=== PATIENT | female | born 1975 | race Hispanic/Latino ===

== ENCOUNTER 2019-07-09 21:30 | Emergency (ER) | payer SELFPAY ==
[~2019-07-09] VITALS: Ht 162.6 cm; Wt 112.5 kg
--- OUTSIDE RECORDS SUMMARY | 2019-07-09 21:33 | XMS REPORT | Clinical Summary ---
Author Author [facility] Organization [place] [facility] Address Unknown Phone Unavailable Care Team Providers Care Fine Grader Name Role Phone Asked, No Pcp PCP Unavailable Allergies Comments Active Allergy Reactions Severity Noted Date Latex Swelling 02/28/2019 Medications No known medications Active Problems Not on file Encounters Care Team Description Date Type Specialty Reinaldo Morataya MD Nonintractable headache, unspecified chr onicity pattern, unspecified headache type (Primary Dx); Generalized abdominal pain 02/28/2019 Emergency Emergency Medicine after 07/08/2018 Social History Date Tobacco Use Types Packs/Day Years Used Never Smoker Smokeless Tobacco: Never Used Drinks/Week oz/Week Comments Alcohol Use Never Alcohol Habits Answer Date Recorded How often do you have a drink containing alcohol? Never 02/28/2019 How many drinks containing alcohol do you have on No t asked a typical day when you are drinking? How often do you have six or more drinks on one Not asked occasion? Sex Assigned at Date Recorded Not on file Industry Job Start Date Occupation Not on file Not on file Not on file Travel End Travel History Travel Start No recent travel history available. Last Filed Vital Signs Reading Time Taken Comments Vital Sign 94/53 02/28/2019 7:50 AM UNIONMELT OPERATOR Blood Pressure 70 02/28/2019 7:50 AM UNIONMELT OPERATOR Pulse 36.9 C (98.5 F) 02/28/2019 5:10 AM UNIONMELT OPERATOR Temperature 17 02/28/2019 7:50 AM UNIONMELT OPERATOR Respiratory Rate 99% 02/28/2019 7:50 AM UNIONMELT OPERATOR Oxygen Saturation - - Inhaled Oxygen Concentration 113 kg (250 lb) 02/28/2019 5:10 AM UNIONMELT OPERATOR Weight 162.6 cm (5' 4") 02/28/2019 5:10 AM UNIONMELT OPERATOR Height 42.91 02/28/2019 5:10 AM UNIONMELT OPERATOR Body Mass Index Plan of Treatment Health Maintenance Due Date Last Done Comments CERVICAL CANCER SCREENING 1998 INFLUENZA VACCINE 09/12/2019 Procedures Comments Procedure Name Priority Date/Time Associated Diag nosis XR CHEST 2 VW STAT 02/28/2019 7:[address] [address] HEAD WO CONTRAST STAT 02/28/2019 6:57 AM UNIONMELT OPERATOR TROPONIN Routine 02/28/2019 6:47 AM UNIONMELT OPERATOR ESTIMATED GFR STAT 02/28/2019 5:40 AM UNIONMELT OPERATOR HCG QUALITATIVE, URINE STAT 02/28/2019 SCREEN 5:40 AM UNIONMELT OPERATOR URINALYSIS SCREEN AND STAT 02/28/2019 MICROSCOPY, WITH REFLEX 5:40 AM UNIONMELT OPERATOR TO CULTURE COMPREHENSIVE METABOLIC STAT 02/28/2019 PANEL 5:40 AM UNIONMELT OPERATOR HC COMPLETE BLD COUNT STAT 02/28/2019 W/AUTO DIFF 5:40 AM UNIONMELT OPERATOR URINE CULTURE STAT 02/28/2019 5:40 AM UNIONMELT OPERATOR after 07/08/2018 Results * XR Chest 2 Vw (02/28/2019 7:22 AM UNIONMELT OPERATOR) Specimen Narrative Performed At EXAMINATION: XR CHEST 2 VW [facility] CLINICAL HISTORY: 43 years Female chest pain [facility] COMPARISON: None IMPRESSION: 1.Heart size and central vasculature ar e normal. 2.The lungs are clear. 3.Bones are intact. [facility]-[id number] Procedure Note Hm Interface, Radiology Results Incoming - 02/28/2019 7:26 AM UNIONMELT OPERATOR EXAMINATION: XR CHEST 2 VW CLINICAL HISTORY: 43 years Female chest pain [facility] COMPARISON: None IMPRESSION: 1.Heart size and central vasculature are normal. 2.The lungs are clear. 3.Bones are intact. [facility]-[id number] Performing Organization Address City/State/Zipcode Ph one Number [facility] [address] [place] [address] * CT Head Wo Contrast (02/28/2019 6:57 AM UNIONMELT OPERATOR) Specimen Narrative Performed At EXAMINATION: CT HEAD WO CONTRAST [facility] CLINICAL HISTORY: paresthesias numb ness intermittently x 3 wks COMPARISON: None. TECHNIQUE: Noncontrast head CT performe d using radiation dose reduction techniques. Technical factors are asher luated and adjusted to ensure appropriate moderation of exposure. Automated dos e management technology is applied to adjust radiation exposure while achieving a diagnostic quality im age. FINDINGS: No evidence of acute intracranial hemor rhage, mass, mass effect, midline shift, or acute infarct. Ventricles and sulci are normal in appe arance for age. Basal cisterns are clear. Calvarium is intact. Orbits are normal in appearance. No sig nificant sinus inflammatory changes. Trace left mastoid fluid. IMPRESSION: 1. No CT evidence of acute intracranial abnormality. [facility]-[id number] Procedure Note [facility], Radiology Results Incoming - 02/28/2019 7:02 AM UNIONMELT OPERATOR EXAMINATION: CT HEAD WO CONTRAST CLINICAL HISTORY: paresthesias numbness intermittently x 3 wks COMPARISON: None. TECHNIQUE: Noncontrast head CT performed using radiation dose reduction techniques. Technical factors are evaluated and adjusted to ensure appropriate moderation of exposure. Automated dose management technology is applied to adjust radiation exposure while achieving a diagnostic quality image. FINDINGS: No evidence of acute intracranial hemorrhage, mass, mass effect, midline shift, or acute infarct. Ventricles and sulci are normal in appearance for age. Basal cisterns are clear. Calvarium is intact. Orbits are normal in appearance. No significant sinus inflammatory changes. Trace left mastoid fluid. IMPRESSION: 1. No CT evidence of acute intracranial abnormality. [facility]-[id number] Performing Organization Address City/State/Zipcode Ph one Number [facility] [address] [place] [address] * Troponin (02/28/2019 6:47 AM UNIONMELT OPERATOR) Troponin <0.006 0.000 - 0.040 ng/mL [place] Comment: [facility] In patients suspected of [facility] having a myocardial infarction, along with all other appropriate clinical measures and actions including ECG and other diagnostics as appropriate, measure Ultra TnI at 0 hrs and at 3 hrs. Myocardial infarction VERY LIKELY The 0 hr TnI level is > 0.10 ng/mL Myocardial infarction LIKELY The 0 hr TnI level is > 0.04 ng/mL and 3 hr level is increased or decreased by at least 0.020 ng/mL Myocardial infarction VERY UNLIKELY Both the 0 hr and 3 hr TnI levels <= 0.04 ng/mL(within normal limits) OR 0 hr is > 0.04 ng/mL and 3 hr is increased OR decreased by less than 0.020 ng/mL Specimen Plasma specimen Performing Organization Address City/State/Zipcode [place] [address] [place], [place] [address] PATHOLOGY AND GENOMIC MEDICINE [facility] [address] [place] [address] [facility] * Urinalysis screen and microscopy, with reflex to culture (02/28/2019 5:40 AM UNIONMELT OPERATOR) Specimen site Catheterized [facility] Color, UA Yellow [facility] Appearance, UA Slightly-Cloudy [facility] Specific 1.021 1.001 - 1.035 [place] gravity, [facility] pH, UA 6.0 5.0 - 8.5 [facility] Protein, UA Negative Negative [facility] Glucose, UA Negative Negative [facility] Ketones, UA Trace (A) Negative [facility] Bilirubin, UA Negative Negative [facility] Blood, UA Negative Negative [facility] Nitrite, UA Negative Negative [facility] Urobilinogen, Negative <2.0 [facility] Leukocyte Negative Negative [place] esterase, [facility] Epithelial None seen Few /HPF [place] cells, UA [facility] WBC, UA None seen 0 - 4 /HPF [facility] RBC, UA None seen 0 - 5 /HPF [facility] Bacteria, UA None seen None seen [facility] Yeast, UA None seen [facility] Yeast with None seen [place] pseudohyphae, [facility] Specimen Urine Performing Organization Address City/[facility] Ph one Number [facility] DEPARTMENT [address] [place] [address] PATHOLOGY AND GENOMIC MEDICINE [address] * Estimated GFR (02/28/2019 5:40 AM UNIONMELT OPERATOR) Pathologist [facility] Estimated GFR >=90 mL/min/1.73 m2 [place] Comment: [employer] Interpretation G1 >=90 Normal or high G2 60-89 Mildly decreased G3a 45-59 Mildly to moderately decreased G3b 30-44 Moderately to severely decreased G4 15-29 Severely decreased G5 <15 Kidney failure The eGFR was calculated using the Chronic Kidney Disease Epidemiology Collaboration (CKD-EPI) equation. Interpretation is based on recommendations of the National Kidney Foundation-Kidney Disease Outcomes Quality Initiative (NKF-KDOQI) published in 2014. Specimen Plasma specimen Performing Organization Address [facility] Ph one Number [facility] DEPARTMENT OF [address] [place] [address] [place] [address] PATHOLOGY AND GENOMIC MEDICINE [address] * hCG qualitative, urine screen (02/28/2019 5:40 AM UNIONMELT OPERATOR) Pathologist [facility] hCG Negative Negative [facility] qualitative, Comment: MEEK VIRK urine The manufacturers stated [facility] L sensitivity of HcG test for serum is >/= 10 mIU/ml and urine is >/= 20mIU/ml. Specimen Urine Performing Organization Address [facility] Ph one Number [facility] DEPARTMENT [address] [place] [address] 58 PATHOLOGY AND GENOMIC MEDICINE [address] * CBC with platelet and differential (02/28/2019 5:40 AM UNIONMELT OPERATOR) Pathologist [facility] WBC 4.41 (L) 4.50 - 11.00 k/uL [facility] RBC 4.25 4.20 - 5.50 m/uL [facility] HGB 12.8 12.0 - 16.0 g/dL [facility] HCT 38.0 37.0 - 47.0 % [facility] MCV 89.4 82.0 - 100.0 fL [facility] MCH 30.1 27.0 - 34.0 pg [facility] MCHC 33.7 31.0 - 37.0 g/dL [facility] RDW - SD 41.7 37.0 - 55.0 fL [facility] MPV 10.9 8.8 - 13.2 fL [facility] Platelet count 155 150 - 400 k/uL [facility] Nucleated RBC 0.00 /100 WBC [facility] Neutrophils 55.3 39.0 - 69.0 % [facility] Lymphocytes 33.8 25.0 - 45.0 % [facility] Monocytes 10.0 0.0 - 10.0 % [facility] Eosinophils 0.7 0.0 - 5.0 % [facility] Basophils 0.2 0.0 - 1.0 % [facility] Specimen Blood Performing Organization Address City/[facility] Ph one Number [facility] DEPARTMENT OF [address] [place] [address] [place] [address] PATHOLOGY AND GENOMIC MEDICINE [address] * Urine culture (02/28/2019 5:40 AM UNIONMELT OPERATOR) Pathologist [facility] Urine culture SEE COMMENTComment: [facility] Bacteriuria screen negative. [facility] Specimen Urine Performing Organization Address City/[facility] Ph one Number [facility] DEPARTMENT [address] [place] [address] PATHOLOGY AND GENOMIC MEDICINE [address] * Comprehensive metabolic panel (02/28/2019 5:40 AM UNIONMELT OPERATOR) Sodium 137 135 - 148 mEq/L [facility] Potassium 4.2 3.5 - 5.0 mEq/L [facility] Chloride 102 98 - 112 mEq/L [facility] CO2 24 24 - 31 mEq/L [facility] Anion gap 11@ANIO 7 - 15 mEq/L [facility] BUN 15 6 - 20 mg/dL [facility] Creatinine 0.70 0.50 - 0.90 mg/dL [facility] Glucose 109 (H) 65 - 99 mg/dL [facility] Calcium 9.8 8.3 - 10.2 mg/dL [facility] Protein 8.4 (H) 6.3 - 8.3 g/dL [place] Comment: [facility] Ffhifsc4237.6-7.0 g/dL [facility] 1 [id number] g/dL 7 months-0jxqn506.1-7.3 g/dL 1-2 kwbby275.6-7.5 g/dL >3 .0-8.0 g/dL [id number] g/dL Albumin 4.4 3.5 - 5.0 g/dL [facility] A/G ratio 1.1 0.7 - 3.8 [facility] Alkaline 99 35 - 104 U/L [place] phosphatase [facility] AST 67 (H) 10 - 35 U/L [facility] ALT 71 (H) 5 - 50 U/L [facility] Total bilirubin 0.7 0.0 - 1.2 mg/dL [facility] Specimen Plasma specimen Performing Organization Address City/State/[place] [address] [place], [place] [address] PATHOLOGY AND GENOMIC MEDICINE [facility] [address] [place] [address] [facility] after 07/08/2018 Advance Directives For more information, please contact: [phone] Patient Zinc Skimmer Explanation Type Date Recorded Advance Directives, 02/28/2019 5:36 AM Living Will and Medical Power of [employer]og[employer] Operator
--- OUTSIDE RECORDS SUMMARY | 2019-07-09 21:34 | XMS REPORT ---
Author Author [facility] t Organization [facility] Address [address] [place] [address] Phone Unavailable Care Team Providers Care Special Officer Name Role Phone NO, PCP PCP Unavailable Hood HORTON, Glenn Najera Attphys [phone] SUZANNE INGRAM Attphys Unavailable OB/MD, POSPROVIDER Attphys Unavailable Payers Payer Name Policy Type Policy Number Effective Date Expiration Date S ource Problems Condition Name Condition Details Condition Category Status Onset Date Resolution Date Last Treatment Date Treating Clinician Comments Source History of Acute pneumothorax History of Acute pneumothorax Problem Resolved [facility] xa Physicians exam exam Problem Active [facility] Allergies, Adverse Reactions, Alerts Allergy Name Allergy Type Status Severity Reaction(s) Onset Date Inacti ve Date Treating Clinician Comments Source Latex Propensity to adverse reactions to drug Active Swelling 2019-02-28 00:00:00 [facility] F[facility] graham latex DA Active [place] 2018-08-22 00:00:00 [facility] latex DA Active U 2017-11-13 00:00:00 [facility] latex DA Active U 2017-11-01 00:00:00 [facility] latex DA Active [place] 2017-05-13 00:00:00 [facility] No Known Allergies DA Active U 2016-12-25 00:00:00 [facility] Social History Social Habit Start Date Stop Date Quantity Comments Source History SDOH Alcohol Std Drinks [facility] History SDOH Alcohol Binge [facility] Sex Assigned At [facility] Alcohol intake 2019-02-28 00:00:00 2019-02-28 00:00:00 Lifetime non-drinker (finding) [facility] History SDOH Alcohol Frequency 2019-02-28 00:00:00 2019-02-28 00:00:0 0 1 [facility] Smoking Status Start Date Stop Date Source Never smoker [facility] t Medications This patient has no known medications. Vital Signs Vital Name Observation Time Observation Value Comments Source Systolic blood pressure 2019-02-28 07:50:00 94 mm[Hg] [facility] Diastolic blood pressure 2019-02-28 07:50:00 53 mm[Hg] [facility] Heart rate 2019-02-28 07:50:00 70 /min [facility] Respiratory rate 2019-02-28 07:50:00 17 /min [facility] Oxygen saturation in Arterial blood by Pulse oximetry 02-28 07:50:00 99 /min [facility] Body temperature 2019-02-28 05:10:00 36.94 Tessy Rema lopez [facility] Body height 2019-02-28 05:10:00 162.6 cm [facility] Body weight 2019-02-28 05:10:00 113.399 kg [facility] BMI 2019-02-28 05:10:00 42.91 kg/m2 [facility] Procedures Procedure Date / Time Performed Performing Clinician Sourc e XR CHEST 2 VW 2019-02-28 07:22:06 [address] [facility] HEAD WO CONTRAST 2019-02-28 06:57:22 Osmany Gaitan [facility] TROPONIN 2019-02-28 06:47:00 Osmany Gaitan [facility] URINE CULTURE 2019-02-28 05:40:00 Jarret Cabrera ethodist HC COMPLETE BLD COUNT W/AUTO DIFF 2019-02-28 05:40:00 Jarret Cabrera COMPREHENSIVE METABOLIC PANEL 2019-02-28 05:40:00 [place] URINALYSIS SCREEN AND MICROSCOPY, WITH REFLEX TO CULTURE 202 05:40:00 Jarret Cabrera HCG QUALITATIVE, URINE SCREEN 2019-02-28 05:40:00 [place] ESTIMATED GFR 2019-02-28 05:40:00 Jarret Cabrera ethodist X-ray of chest, two views 2019-02-11 00:00:00 SUZANNE INGRAM CH I [facility] History of Section [facility] Physicians History of Hysterectomy supracervical [facility] Plan of Care Planned Activity Planned Date Details Comments Source Future Scheduled Test 2019-09-12 00:00:00 INFLUENZA VACCINE [code = INFLUENZA VACCINE] Devan De La Garza Future Scheduled Test 1998 00:00:00 Screening for paul gnant neoplasm of cervix (procedure) [code = 530477541] Devan Fried Encounters Start Date/Time End Date/Time Encounter Type Admission Type Att[facility] Care Department Encounter ID Source 2019-02-28 00:00:00 2019-02-28 00:00:00 Emergency OSMANY GAITAN [id number] Devan De La Garza 2019-02-11 21:39:00 2019-02-11 21:39:00 Emergency E [id number] 2019-02-11 09:09:00 2019-02-11 09:09:00 Emergency E [facility]SE [id number] 2019-02-11 03:03:00 2019-02-11 06:20:00 Departed Emergency Room 1 SUZANNE INGRAM [facility] [id number] [facility] 2019-02-05 15:36:00 2019-02-05 18:14:00 Departed Emergency Room [facility] [id number] [facility] 2016-06-11 13:00:00 2016-06-11 13:00:00 Appointment; OB/MD, POSPROV IDER OB/MD, POSPROVIDER [facility] [id number] [facility] Results Test Description Test Time Test Comments Results Result Comments Source Troponin 2019-02-28 07:24:53 Test Item Troponin (test code = 44155-6) <0.006 0-0.04 In patients suspected of having a myocardial infarction, along with all other appropriate clinical measures and actions including ECG and other diagnostics as appropriate, measure Ultra TnI at 0 hrs and at 3 hrs.Myocardial infarction VERY LIKELYThe 0 hr TnI level is > 0.10 ng/mL Francisco cardial infarction LIKELYThe 0 hr TnI level is > 0.04 ng/mL and 3 hr level is increased or decreased by at least 0.020 ng/mL Myocardi al infarction VERY UNLIKELYBoth the 0 hr and 3 hr TnI levels <= 0.04 ng/mL(within normal limits) OR 0 hr is > 0.04 ng/mL and 3 hr is increased OR decreased by less than 0.020 ng/mL Devan MethodistXR Chest 2 [id number] 07:22:56Hm Interface, Radiology Results 02/28/2019 7:26 AM CSTEXAMINATION: XR CHEST 2 VWCLINICAL HISTORY: 43 years Female chest pain STJHCOMPARISON: NoneIMPRESSION:1.Heart size and central vasculature are normal. 2.The lungs are clear.3.Bones are intact.[facility]-JO93AUADQrgndbb MethodistCT Head Wo Zopndzgd1849-62-55 06:59:37Hm Interface, Radiology Results 02/28/2019 7:02 AM CSTEXAMINATION: CT HEAD WO CONTRASTCLINICAL HISTORY: paresthesias numbness intermittently x 3 wksCOMPARISON: None.TECHNIQUE: Noncontrast head CT performed using radiation do se reduction techniques. Technical factors are evaluated and adjusted to ensure appropriate moderation of exposure. Automated dose management technology is ap plied to adjust radiation exposure while achieving a diagnostic quality image. FINDINGS:No evidence of acute intracranial hemorrhage, mass, mass effect, midlin e shift, or acute infarct. Ventricles and sulci are normal in appearance for age . Basal cisterns are clear. Calvarium is intact. Orbits are normal in appearanc e. No significant sinus inflammatory changes. Trace left mastoid fluid. IMPRESS ION:1. No CT evidence of acute intracranial abnormality.[facility]0AF44400IPUzlwmvy MethodistComprehensive metabolic ddobh0900-51-68 06:29:11* Test Item Value Reference Range Interpretation Comments Sodium (test code = 2951-2) 137 135- 148 mEq/L Potassium (test code = 2823-3) 4.2 3.5- 5.0 mEq/L Chloride (test code = 2075-0) 102 98- 112 mEq/L CO2 (test code = 2027-9) 24 24- 31 mEq/L Anion gap (test code = 26225-3) 11@ANIO 7- 15 mEq/L BUN (test code = 3094-0) 15 mg/dL 6-20 Creatinine (test code = 2160-0) 0.70 mg/dL 0.5-0.9 Glucose (test code = 2345-7) 109 mg/dL 65-99 H Calcium (test code = 36884-8) 9.8 mg/dL 8.3-10.2 Protein (test code = 2885-2) 8.4 g/dL 6.3-8.3 H Funrljb3211.6-7.0 g/dL1 xwor0688.4-7.6 g/dL7 months-2hkvb550.1-7.3 g/dL1-2 ukcge761.6-7.5 g/dL>3 uvuvl905.0-8.0 g/cT31-9658705.3-8.3 g/dL Albumin (test code = 1751-7) 4.4 g/dL 3.5-5 A/G ratio (test code = 1759-0) 1.1 0.7-3.8 Alkaline phosphatase (test code = 6768-6) 99 U/L 35-104 AST (test code = 1920-8) 67 U/L 10-35 H ALT (test code = 1742-6) 71 U/L 5-50 H Total bilirubin (test code = 1975-2) 0.7 mg/dL 0-1.2 Lab Interpretation (test code = 03193-1) Abnormal [facility] MethodistEstimated [id number] 06:29:11* Test Item Value Reference Range Interpretation Comments Estimated GFR (test code = 5488) >=90 mL/min/1.73 m2 Catergory Units InterpretationG1 >=90 Normal or highG2 60-89 Mildly jefjugochQ5c 45-59 Mildly to moderately vqmanfmxhL3a 30-44 Moderately to severely decreasedG4 15-29 Severely decreasedG5 <15 Kidney failureThe eGFR was calculated using the Chronic Kidney Disease Epidemiology Collaboration (CKD-EPI) equation. Interpretation is based on recommendations of the National Kidney Foundation-Kidney Disease Outcomes Quality Initiative (NKF-KDOQI) published in 2014. Britton MethodisthCG qualitative, urine tfqlfb3626-30-23 06:08:51* Test Item Value Reference Range Interpretation Comments hCG qualitative, urine (test code = 2106-3) Negative Negative The manufacturers stated sensitivity of HcG test for serum is >/= 10 mIU/ml and urine is >/= 20mIU/ml. Britton OlmanistUrine cwsdzqv1050-21-42 06:07:51* Test Item Value Reference Range Interpretation Comments Urine culture (test code = 3090085) SEE COMMENT Bacteriuria screen negative. [facility]ist[facility]inalysis screen and microscopy, with reflex to culture 2019-02-28 06:07:49* Test Item Value Reference Range Interpretation Comments Specimen site (test code = 5222162) Catheterized Color, UA (test code = 5778-6) Yellow Appearance, UA (test code = 5767-9) Slightly-Cloudy Specific gravity, UA (test code = 5811-5) 1.021 1.001-1.035 pH, UA (test code = 5803-2) 6.0 5.0-8.5 Protein, UA (test code = 55417-4) Negative Negative Glucose, UA (test code = 97006-8) Negative Negative Ketones, UA (test code = 2514-8) Trace Negative A Bilirubin, UA (test code = 5770-3) Negative Negative Blood, UA (test code = 5794-3) Negative Negative Nitrite, UA (test code = 5802-4) Negative Negative Urobilinogen, UA (test code = 60373-5) Negative <2.0 Leukocyte esterase, UA (test code = 5799-2) Negative Negative Epithelial cells, UA (test code = 5787-7) None seen Few /HPF WBC, UA (test code = 5821-4) None seen 0- 4 /HPF RBC, UA (test code = 56582-8) None seen 0- 5 /HPF Bacteria, UA (test code = 81763-2) None seen None seen Yeast, UA (test code = 60683-1) None seen Yeast with pseudohyphae, UA (test code = 57127-4) None seen Lab Interpretation (test code = 98988-8) Abnormal [facility] and jofmpyugjmfn9247-69-81 06:01:38* Test Item Value Reference Range Interpretation Comments WBC (test code = 91916-6) 4.41 4.50- 11.00 k/uL L RBC (test code = 34305-8) 4.25 m/uL 4.2-5.5 HGB (test code = 718-7) 12.8 g/dL 12-16 HCT (test code = 4544-3) 38.0 % 37-47 MCV (test code = 787-2) 89.4 fL 82-100 MCH (test code = 785-6) 30.1 pg 27-34 MCHC (test code = 786-4) 33.7 g/dL 31-37 RDW - SD (test code = 03931-0) 41.7 fL 37-55 MPV (test code = 98380-8) 10.9 fL 8.8-13.2 Platelet count (test code = 05269-2) 155 150- 400 k/uL Nucleated RBC (test code = 42290-3) 0.00 /100 WBC Neutrophils (test code = 68793-9) 55.3 % 39-69 Lymphocytes (test code = 21586-3) 33.8 % 25-45 Monocytes (test code = 89175-8) 10.0 % 0-10 Eosinophils (test code = 20206-0) 0.7 % 0-5 Basophils (test code = 57421-2) 0.2 % 0-1 Lab Interpretation (test code = 39364-1) Abnormal [facility]- US ABDOMEN [id number] 05:14:00 Name: FLEX PEREZ [facility] : 1975 Age/S: 43 / F [address] [place] [address] Unit #: [id number] Loc: [facility] Phan [address] Phys: Cindi Steele NP Acct: [id number] Dis Date: Status: REG ER PHONE #: [phone] Exam Date: 02/27/2019 0440 FAX #: [phone] Reason: ruq pain EXAMS: CPT CODE: [id number] US ABDOMEN LTD 18922 EXAM: US, US ABDOMEN LTD: 02/27/2019, 0431 hours HISTORY: ruq pain TECHNIQUE: Sonographic evaluation is performed using grayscale, color flow and Doppler imaging as appropriate. COMPARISON: CT scan 12/10/2018. Ultrasound dated 08/22/2018. FINDINGS: The liver shows normal parenchymal echogenicity. Visualized portal vein is patent. There is no evidence of dilated intrahepatic biliary ducts. Common bile duct measures 3.7 mm. The gallbladder is physiologically distended with normal wall thickness at 2.4 mm. Small sludge seen in the gallbladder. No evidence of cholelithiasis or pericholecystic fluid collection is seen. Sonographic De La Cruz sign is negative The right kidney measures 11.2 cm. There is no evidence of hydronephrosis. The visualized pancreas is unremarkable. A 1.8 x 1.4 x 1.10 cm peripancreatic lymph node, n onspecific IMPRESSION: 1. A prominent peripancr eatic lymph node, nonspecific, may be reactive. Visualized pancreas is unremarkable. 2. Small sludge in the gallbladder. No sonographic evide nce for acute cholecystitis or cholelithiasis. SL; [JSYED-H] at 0514 Reported and signed by: Ranjan Mccoy M.D. CC: Cindi Steele JUNIOR WEB DEVELOPER; Juan Lima MD Technolog ist: Gauri Steele RDMS(A) Trnscb Date/Time: (05) EdelmiraJS38 Orig Print D/T: S: 02/27/2019 ( 0518) Probe: PAGE 1 Signed Repo rt BASIC METABOLIC [id number] 03:36:00* Test Item Value Reference Range Interpretation Comments SODIUM (test code = NA) 139 mEq/L 134-147 N POTASSIUM (test code = K) 3.5 mEq/L 3.4-5.0 N CHLORIDE (test code = CL) 106 mEq/L 100-108 N CARBON DIOXIDE (test code = CO2) 27 mEq/L 21-33 N ANION GAP (test code = GAP) 10 0-20 N GLUCOSE (test code = GLU) 98 mg/dL 70-110 N BLOOD UREA NITROGEN (test code = BUN) 16 mg/dL 7-18 N GLOMERULAR FILTRATION RATE (test code = GFR) 92.2 95-105 L Units of measure = ml/min/1.73 m2 CREATININE (test code = CREAT) 0.7 mg/dL 0.6-1.3 N CALCIUM (test code = CA) 9.8 mg/dL 8.0-10.5 N HEPATIC FUNCTION [id number] 03:36:00* Test Item Value Reference Range Interpretation Comments TOTAL PROTEIN (test code = PROT) 8.5 g/dL 6.4-8.2 H ALBUMIN (test code = ALB) 4.00 g/dL 3.4-5.0 N BILIRUBIN TOTAL (test code = BILT) 0.6 MG/DL <1.5 N BILIRUBIN DIRECT (test code = BILD) 0.20 MG/DL 0.0-0.30 N BILIRUBIN INDIRECT (test code = BILIND) 0.40 MG/DL SGOT/AST (test code = AST) 78 IUnit/L 15-37 H SGPT/ALT (test code = ALT) 90 IUnit/L 15-65 H ALKALINE PHOSPHATASE TOTAL (test code = ALKP) 119 IUnit/L 20-125 N [id number] 03:36:00* Test Item Value Reference Range Interpretation Comments LIPASE (test code = LIP) 124 IUnit/L 73-393 N CBC W/AUTO [id number] 03:21:00* Test Item Value Reference Range Interpretation Comments WHITE BLOOD CELL (test code = WBC) 4.96 x10 3/uL 4.5-11.0 N RED BLOOD CELL (test code = RBC) 4.38 x10 6/uL 3.54-5.02 N HEMOGLOBIN (test code = HGB) 13.1 g/dL 11.0-15.0 N HEMATOCRIT (test code = HCT) 37.6 % 33.0-45.0 N MEAN CELL VOLUME (test code = MCV) 85.8 fL 81.0-99.0 N MEAN CELL HGB (test code = MCH) 29.9 pg 27.0-33.0 N MEAN CELL HGB CONCETRATION (test code = MCHC) 34.8 g/dL 33.0-37. 0 N RED CELL DISTRIBUTION WIDTH CV (test code = RDW) 12.4 % 11.5- 14.5 N RED CELL DISTRIBUTION WIDTH SD (test code = RDW-SD) 39.2 fL 37 .0-54.0 N PLATELET COUNT (test code = PLT) 170 x10 3/uL 150-400 N MEAN PLATELET VOLUME (test code = MPV) 11.1 fL 7.0-9.0 H NEUTROPHIL % (test code = NT%) 52.2 % 56.0-77.0 L IMMATURE GRANULOCYTE % (test code = IG%) 0.2 % 0.0-2.0 N LYMPHOCYTE % (test code = LY%) 34.1 % 14.0-32.0 H MONOCYTE % (test code = MO%) 11.5 % 4.8-9.0 H EOSINOPHIL % (test code = EO%) 1.8 % 0.3-3.7 N BASOPHIL % (test code = BA%) 0.2 % 0.0-2.0 N NUCLEATED RBC % (test code = NRBC%) 0.0 % 0-0 N NEUTROPHIL # (test code = NT#) 2.59 x10 3/uL 2.0-7.6 N IMMATURE GRANULOCYTE # (test code = IG#) 0.01 x10 3/uL 0.00-0.03 N LYMPHOCYTE # (test code = LY#) 1.69 x10 3/uL 1.0-3.8 N MONOCYTE # (test code = MO#) 0.57 x10 3/uL 0.1-0.8 N EOSINOPHIL # (test code = EO#) 0.09 x10 3/uL 0.0-0.2 N BASOPHIL # (test code = BA#) 0.01 x10 3/uL 0.0-0.2 N NUCLEATED RBC # (test code = NRBC#) 0.00 x10 3/uL 0.0-0.1 N MANUAL DIFF REQUIRED (test code = MDIFF) NO TROPONIN-I [id number] 03:18:00* Test Item Value Reference Range Interpretation Comments TROPONIN-I RAPID (test code = TROPIRAP) 0.00 ng/mL 0.00-0.08 N Performed by certified combine operator at [facility] Negative: <= 0.08 Positive: >= 0.09An elevated troponin value alone is not sufficient todiagnose a myocardial infarction. Rather, the patient sclinical presentation (history, physical exam) and ECGshould be used in conjunction with troponin in thediagnostic evaluation of suspected myocardial infarction. Aserial sampling protocol is recommended to facilitate the identification of temporal changes in troponin levels characteristic of GA. - XR CHEST 2 [id number] 02:47:00 FAX: Cindi Steele NP [phone] [place]: St: PRE Name: FLEX MCCORMICK [facility] : [birth year] Age/S: 43/F [address] [place] [address] Unit #: [id number] Loc: [place] [address] Phys: Cindi Steele NP Acct: [id number] Dis Date: Status: PRE ER PHONE #: [phone] Exam Date: 02/27/2019 0241 FAX #: [phone] Reason: cp EXAMS: CPT CODE: [id number] XR CHEST 2 V 63717 EXAM: CR, XR chest 2 views: 2019, 0235 hours HISTORY: cp TECHNIQUE: 2018 COMPARISON: None available. FINDINGS: Trachea is in midline. Heart is normal in size. Pulmonary vascularity is not khadijah ested. No airspace consolidation, pneumothorax or pleural effusion is see n. Osseous structures are stable. IMPRESSION: No acute ca rdiopulmonary disease seen. SL:[JSYED-H] Perico mayesr Signed by Radhika Mccoy on 02/27/2019 at 0247 Re ported and signed by: Ranjan Mccoy M.D. CC: Cindi Steele JUNIOR WEB DEVELOPER Technologist: Art Ambrosio RT(R) Trnscrd Date/Time/By: 02/27/2019 (024) : By: Umair GonzalesJS38 Orig Print D/T: S: 02/27/2019 (025) PAG E 1 Signed Report Creatine Kinase [id number] 05:40:00* Test Item Value Reference Range Interpretation Comments Creatine Kinase MB (test code = 74063-2) 0.90 0-5.0 [facility] HospitalTroponin [id number] 05:40:00* Test Item Value Reference Range Interpretation Comments Troponin I (test code = YFM2511) 0.008 0-0.300 [facility] [id number] 05:07:00* Test Item Value Reference Range Interpretation Comments Sodium Level (test code = 2951-2) 135 136-145 L [facility] HospitalPotassium [id number] 05:07:00* Test Item Value Reference Range Interpretation Comments Potassium Level (test code = 2823-3) 3.8 3.5-5.1 [facility] HospitalChloride [id number] 05:07:00* Test Item Value Reference Range Interpretation Comments Chloride Level (test code = 2075-0) 101 98-107 [facility] HospitalCarbon Dioxide [id number] 05:07:00* Test Item Value Reference Range Interpretation Comments Carbon Dioxide Level (test code = 2028-9) 26 22-29 [facility] HospitalAnion [id number] 05:07:00* Test Item Value Reference Range Interpretation Comments Anion Gap (test code = 16885-9) 11.8 8-16 [facility] HospitalBlood Urea [id number] 05:07:00* Test Item Value Reference Range Interpretation Comments Blood Urea Nitrogen (test code = 3094-0) 12 7-26 [facility] HospitalCreatinine2020-01-01 05:07:00* Test Item Value Reference Range Interpretation Comments Creatinine (test code = 2160-0) 0.68 0.57-1.11 [facility] HospitalBUN/Creatinine [id number] 05:07:00* Test Item Value Reference Range Interpretation Comments BUN/Creatinine Ratio (test code = 3097-3) 18 6-25 [facility] HospitalEstimat Glomerular Filtration Rate 2019-02-11 05:07:00* Test Item Value Reference Range Interpretation Comments Estimat Glomerular Filtration Rate (test code = 353774089) > 60 >60 Ranges were taken from the National Kidney Disease Education Program and the [facility] Foundation literature.Reference ranges:60 or greater: Gysslk26-08 ( for 3 consecutive months): Chronic kidney disease 15 or less: Kidney failureUT Southwestern William [facility]. [facility]. University HospitalGlucose Zwppy8785-01-71 05:07:00* Test Item Value Reference Range Interpretation Comments Glucose Level (test code = NJV4915) 107 74-118 [facility] HospitalCalcium [id number] 05:07:00* Test Item Value Reference Range Interpretation Comments Calcium Level (test code = 19548-0) 8.5 8.4-10.2 [facility] HospitalTotal Jnikkqepe0782-72-09 05:07:00* Test Item Value Reference Range Interpretation Comments Total Bilirubin (test code = 1975-2) 0.6 0.2-1.2 [facility] HospitalAspartate Amino Transf (AST/SGOT) 2019-02-11 05:07:00* Test Item Value Reference Range Interpretation Comments Aspartate Amino Transf (AST/SGOT) (test code = Aspartate Amino Transf (AST/SGOT)) 56 5-34 H [facility] HospitalAlanine Aminotransferase (ALT/SGPT) 2019-02-11 05:07:00* Test Item Value Reference Range Interpretation Comments Alanine Aminotransferase (ALT/SGPT) (test code = 1742-6) 62 0-55 H [facility] HospitalTotal Lkwrktq1192-95-83 05:07:00* Test Item Value Reference Range Interpretation Comments Total Protein (test code = 2885-2) 7.6 6.5-8.1 [facility] HospitalAlbumin2020-01-01 05:07:00* Test Item Value Reference Range Interpretation Comments Albumin (test code = 1751-7) 3.4 3.5-5.0 L [facility] HospitalGlobulin2020-01-01 05:07:00* Test Item Value Reference Range Interpretation Comments Globulin (test code = 44685-9) 4.2 2.3-3.5 H [facility] HospitalAlbumin/Globulin [id number] 05:07:00 * Test Item Value Reference Range Interpretation Comments Albumin/Globulin Ratio (test code = 1759-0) 0.8 0.8-2.0 [facility] HospitalAlkaline Zgpoupwtert0796-16-36 05:07:00* Test Item Value Reference Range Interpretation Comments Alkaline Phosphatase (test code = 6768-6) 104 40-150 [facility] HospitalCreatine Nvmidr9400-82-11 05:07:00* Test Item Value Reference Range Interpretation Comments Creatine Kinase (test code = 2157-6) 46 29-168 [facility] HospitalLipase2020-01-01 05:07:00* Test Item Value Reference Range Interpretation Comments Lipase (test code = 3040-3) 20 8-78 [facility] HospitalD-Dimer Quantitative (PE/DVT)2019-02-11 05:05:00* Test Item Value Reference Range Interpretation Comments D-Dimer Quantitative (PE/DVT) (test code = 27801-8) < 100 0- 400 As with all in vitro diagnostic tests, the test results should be interpreted by the physician in conjunction with clinical findings and other test results.Test results are reported in NEW D-dimer units(ug/mLFEU).[facility] HospitalWhite Blood [id number] 04:47:00* Test Item Value Reference Range Interpretation Comments White Blood Count (test code = 6690-2) 5.61 4.8-10.8 [facility] HospitalRed Blood Zvxeg5725-71-02 04:47:00* Test Item Value Reference Range Interpretation Comments Red Blood Count (test code = 789-8) 4.21 3.6-5.1 [facility] HospitalHemoglobin2020-01-01 04:47:00* Test Item Value Reference Range Interpretation Comments Hemoglobin (test code = 43069-1) 12.5 12.0-16.0 [facility] HospitalHematocrit2020-01-01 04:47:00* Test Item Value Reference Range Interpretation Comments Hematocrit (test code = 4544-3) 37.0 34.2-44.1 [facility] HospitalMean Corpuscular Kohrtx0746-44-34 04:47:00* Test Item Value Reference Range Interpretation Comments Mean Corpuscular Volume (test code = 787-2) 87.9 81-99 [facility] HospitalMean Corpuscular Wvtbscvnch9516-74-98 04:47:00* Test Item Value Reference Range Interpretation Comments Mean Corpuscular Hemoglobin (test code = 785-6) 29.7 28-32 [facility] HospitalMean Corpuscular Hemoglobin Concent 2019-02-11 04:47:00* Test Item Value Reference Range Interpretation Comments Mean Corpuscular Hemoglobin Concent (test code = 786-4) 33.8 31-35 [facility] Cell Distribution [id number] 04:47:00* Test Item Value Reference Range Interpretation Comments Red Cell Distribution Width (test code = 42928-7) 12.8 11.7 -14.4 [facility] HospitalPlatelet [id number] 04:47:00* Test Item Value Reference Range Interpretation Comments Platelet Count (test code = 777-3) 172 140-360 [facility] HospitalNeutrophils (%) (Auto)2019-02-11 04:47:00 * Test Item Value Reference Range Interpretation Comments Neutrophils (%) (Auto) (test code = 59780-9) 60.4 38.7-80.0 [facility] HospitalLymphocytes (%) (Auto)2019-02-11 04:47:00 * Test Item Value Reference Range Interpretation Comments Lymphocytes (%) (Auto) (test code = 736-9) 27.1 18.0-39.1 [facility] HospitalMonocytes (%) (Auto)2019-02-11 04:47:00* Test Item Value Reference Range Interpretation Comments Monocytes (%) (Auto) (test code = 5905-5) 10.7 4.4-11.3 [facility] HospitalEosinophils (%) (Auto)2019-02-11 04:47:00 * Test Item Value Reference Range Interpretation Comments Eosinophils (%) (Auto) (test code = 713-8) 1.4 0.0-6.0 [facility] HospitalBasophils (%) (Auto)2019-02-11 04:47:00* Test Item Value Reference Range Interpretation Comments Basophils (%) (Auto) (test code = 706-2) 0.2 0.0-1.0 [facility] HospitalIM GRANULOCYTES %2019-02-11 04:47:00* Test Item Value Reference Range Interpretation Comments IM GRANULOCYTES % (test code = IM GRANULOCYTES %) 0.2 0.0- 1.0 [facility] HospitalNeutrophils # (Auto)2019-02-11 04:47:00* Test Item Value Reference Range Interpretation Comments Neutrophils # (Auto) (test code = 751-8) 3.4 2.1-6.9 [facility] HospitalLymphocytes # (Auto)2019-02-11 04:47:00* Test Item Value Reference Range Interpretation Comments Lymphocytes # (Auto) (test code = 68020-1) 1.5 1.0-3.2 [facility] HospitalMonocytes # (Auto)2019-02-11 04:47:00* Test Item Value Reference Range Interpretation Comments Monocytes # (Auto) (test code = 742-7) 0.6 0.2-0.8 [facility] HospitalEosinophils # (Auto)2019-02-11 04:47:00* Test Item Value Reference Range Interpretation Comments Eosinophils # (Auto) (test code = 711-2) 0.1 0.0-0.4 [facility] HospitalBasophils # (Auto)2019-02-11 04:47:00* Test Item Value Reference Range Interpretation Comments Basophils # (Auto) (test code = 704-7) 0.0 0.0-0.1 [facility] HospitalAbsolute Immature Granulocyte (auto 2019-02-11 04:47:00* Test Item Value Reference Range Interpretation Comments Absolute Immature Granulocyte (auto (molly t code = Absolute Immature Granulocyte (auto) 0.01 0-0.1 [facility] HospitalUrine [id number] 04:47:00* Test Item Value Reference Range Interpretation Comments Urine Test (test code = 2106-3) NEGATIVE NEGATIVE [facility] HospitalCHEST 2 [id number] 04:47:00 [facility] [address] [place] [address] Patient Name: FLEX PEREZ MR #: [id number] : 1975 Age/Sex: 43/F Req #: [id number] Adm Physician: Ordered by: SUZANNE INGRAM DO Report #: [id number] Location: ER Room/Bed: Procedure: [id number] DX /CHEST 2 VIEWS Exam Date: 02/11/19 Exam Time: 0337 REPORT STATUS: Signed EXAMINATION: CHEST 2 VIEWS INDICATION: Chest pain COMPARISON: None FINDINGS: TUBES and LINES: None. LUNGS: Lungs are well infl ated. Lungs are clear. Prominent central pulmonary vasculature. PLEURA: No pleural effusion or pneumothorax. HEART AND MEDIASTINUM: The cardiome diastinal silhouette is borderline enlarged. BONES AND SOFT TISSUES: No acute osseous lesion. Soft tissues are unremarkable. UPPER ABDOMEN: No free air under the diaphragm. IMPRESSION: Borderline cardiomeg kirsten and pulmonary vascular congestion. Signed by: Alberto Huntley DO on 02/11 4:48 AM Dictated By: ALBERTO HUNTLEY DO 7 Transcribed By: SUSY on 02/11/19447 COPY TO: SUZANNE INGRAM DO - XR CHEST 2 [id number] 20:13:00 Name: ANAFLEX LIMA [facility] : 1975 Age/S:43 /F [address] [facility] Unit#:[id number] [place]: [place] [address] Phys: Lane Padron MD Dis Date: PHONE #: [phone] Status: REG ER FAX #: [phone] Exam Date: 02/03/2019 Re ason: near syncope EXAMS: CPT CODE: [id number] XR CHEST 2 V 45648 HISTORY: Near syncope. COMPARISON: February 18, 2018. Location: TH. AP and l ateral view of the chest: No acute infiltrates, effusion or conges tion. Cardiac and the mediastinal silhouette are normal. IMPRESSION: No acute infiltrates, effusion or congestion. at 2012 Reported and signed by: Porfirio Lechuga M.D. CC: Maryann Padron MD Technologist: Verna RIVERO RT(R),CT Trnscrpt Data: 02/03/2019 (2012) t.SDR.TH4 Orig Print D/T: S: 02/03/2019 (2049) PAGE 1 Signed Report BASIC METABOLIC [id number] 20:02:00* Test Item Value Reference Range Interpretation Comments SODIUM (test code = NA) 138 mmol/L 135-148 N POTASSIUM (test code = K) 3.4 mmol/L 3.5-5.1 L CHLORIDE (test code = CL) 99 mmol/L 101-109 L CARBON DIOXIDE (test code = CO2) 28.0 mmol/L 21-32 N ANION GAP (test code = GAP) 14 mmol/L 10-20 N GLUCOSE (test code = GLU) 98 mg/dL 74-106 N BLOOD UREA NITROGEN (test code = BUN) 15 mg/dL 3-21 N GLOMERULAR FILTRATION RATE (test code = GFR) > 60 mL/min >=60 Estimated GFR by using Modified MDRD formula.Chronic kidney disease is defined as either kidney damageor GFR <60 mL/min/1.73 m2 for >3 months. CREATININE (test code = CREAT) 0.71 mg/dL 0.55-1.3 N BUN/CREATININE RATIO (test code = BUN/CREA) 21.1 10-20 H CALCIUM (test code = CA) 8.8 mg/dL 8.4-10.2 N HCG SERUM [id number] 20:02:00* Test Item Value Reference Range Interpretation Comments HCG SERUM QUAL (test code = HCGQL) NEGATIVE NEGATIVE This HCGQL test is NOT applicable for MALE patients.Check with nurse about probable order error.If Tumor Marker Test needed, nurse should order test "HCGTU"(Test #550.50793) BASIC METABOLIC [id number] 19:59:00* Test Item Value Reference Range Interpretation Comments SODIUM (test code = NA) mmol/L 135-148 POTASSIUM (test code = K) mmol/L 3.5-5.1 CHLORIDE (test code = CL) mmol/L 101-109 CARBON DIOXIDE (test code = CO2) mmol/L 21-32 ANION GAP (test code = GAP) mmol/L 10-20 GLUCOSE (test code = GLU) mg/dL 74-106 BLOOD UREA NITROGEN (test code = BUN) mg/dL 3-21 GLOMERULAR FILTRATION RATE (test code = GFR) mL/min >=60 CREATININE (test code = CREAT) mg/dL 0.55-1.3 BUN/CREATININE RATIO (test code = BUN/CREA) 10-20 CALCIUM (test code = CA) mg/dL 8.4-10.2 HCG SERUM [id number] 19:59:00* Test Item Value Reference Range Interpretation Comments HCG SERUM QUAL (test code = HCGQL) NEGATIVE NEGATIVE This HCGQL test is NOT applicable for MALE patients.Check with nurse about probable order error.If Tumor Marker Test needed, nurse should order test "HCGTU"(Test #550.81134) CBC W/AUTO [id number] 19:50:00* Test Item Value Reference Range Interpretation Comments WHITE BLOOD CELL (test code = WBC) 6.7 K/mm3 4.5-12.5 N RED BLOOD CELL (test code = RBC) 4.62 mill/mm3 3.7-5.2 N HEMOGLOBIN (test code = HGB) 13.5 gram/dL 11.5-15.5 N HEMATOCRIT (test code = HCT) 40.2 % 36.0-46.0 N MEAN CELL VOLUME (test code = MCV) 87.0 fL 80-98 N MEAN CELL HGB (test code = MCH) 29.2 picogram 27.0-33.0 N MEAN CELL HGB CONCETRATION (test code = MCHC) 33.6 gram/dL 33.0-36. 0 N RED CELL DISTRIBUTION WIDTH (test code = RDW) 12.5 % 11.6-16. 2 N RED CELL DISTRIBUTION WIDTH SD (test code = RDW-SD) 40.5 fL 37 .0-51.0 N PLATELET COUNT (test code = PLT) 197 K/mm3 150-450 N MEAN PLATELET VOLUME (test code = MPV) 10.3 fL 6.7-11.0 N NEUTROPHIL % (test code = NT%) 57.0 % 39.0-69.0 N LYMPHOCYTE % (test code = LY%) 34.8 % 25.0-55.0 N MONOCYTE % (test code = MO%) 7.0 % 0.0-10.0 N EOSINOPHIL % (test code = EO%) 1.0 % 0.0-5.0 N BASOPHIL % (test code = BA%) 0.1 % 0.0-1.0 N NEUTROPHIL # (test code = NT#) 3.82 K/mm3 1.8-7.7 N LYMPHOCYTE # (test code = LY#) 2.34 K/mm3 1.0-5.0 N MONOCYTE # (test code = MO#) 0.47 K/mm3 0-0.8 N EOSINOPHIL # (test code = EO#) 0.07 K/mm3 0.0-0.5 N BASOPHIL # (test code = BA#) 0.01 K/mm3 0.0-0.2 N MANUAL DIFF REQUIRED (test code = MDIFF) NO - CT ABD PELVIS [id number] 19:23:00 Name: FLEX PEREZ [facility] : 1975 Age/S: 43 / F [address] [facility] Unit #: [id number] Loc: [place] [address] Phys: Victor M Francois MD Acct: [id number] Dis Date: Status: REG ER PHONE #: [phone] Exam Date: 12/10/2018 185 FAX #: [phone] Reason: left side abd pain EXAMS: CPT CODE: [id number] CT ABD PELVIS W/CONT 53556 HISTORY: Left-sided pain. COMPARISON: CT abdomen and pelvis from November 28, 2011 and ultrasound abdomen from August 22, 2018. Location: TH. CT abdomen and pelvis with IV contrast: 100 mL of Isovue-370. Automated exposure control CT ABDOMEN: The lung bases demonstrating herniation of subpleural fat on the left side. The liver enhanced homogeneously without parenchymal mass. The liver measured 18 cm in length. Portal vein and hepatic artery are patent. Gallbladder is without radiopaque stones. The spleen is enhancing homogeneously. The stomach distended incompletely however it is normal in appearance. Noncontrast pancreas and adrenals are normal. Kidneys are free from hydroureteronephrosis. Homogeneous enhancement. Bilateral excretion. No pathologic adenopathy. Well-opacified abdominal and pelvic vasculature although contrast bolus is suboptimal. Retroaortic left renal vein. No bowel obstruction or colitis or diverticulitis or enteritis. CT PELVIS: Appendix is normal. Pelvic bowel loops are unobstructed. Unremarkable decompressed urinary bladder. The uterus is unremarkable. Phleboliths. High riding left ovary. Right ovary is poorly visible. No free fluid or free air or abs cess. No pelvic pathologic adenopathy. The subcutaneous tis sues and the musculature are normal in appearance. No lytic or blastic le sions visible within the bony skeleton. PAGE 1 Signed Report (CONTINUED) Name: FLEX PEREZ [facility] : 1975 Age/S: 43 / F [address] [facility] Unit #: [id number] Loc: [place] [address] Phys: Victor M Francois MD Acct: [id number] Dis Date: Status: REG ER PHONE #: [phone] Exam Date: 2018 1850 FAX #: [phone] Reason: left side abd pa in EXAMS: CPT CODE: [id number] CT ABD PELVIS W/CONT 741 77 <Continued> IMPRESSION: Appendix is normal. No bowel obstruction or colitis or diverticulitis or enteritis. No free fluid or free air or abscess. at 1923 Reported and signed by: Porfirio Lechuga M.D. CC: Victor M Francois MD Technologist:ANGEL LUIS AMARAL(R),RDMS,CT CTDI: DLP: Trnscb Date/Time: 12/10/2018 (1922) t.SDR.TH4 Orig Print D/T: S: 12/10/2018 (1925) PAGE 2 Signed Report URINALYSIS [id number] 19:07:00* Test Item Value Reference Range Interpretation Comments UA COLOR (test code = COLU) DARK YELLOW YELLOW A UA APPEARANCE (test code = APPU) Cloudy CLEAR A UA GLUCOSE DIPSTICK (test code = DGLUU) norm mg/dL NEGATIVE UA BILIRUBIN DIPSTICK (test code = BILU) NEGATIVE mg/dL NEGATIVE UA KETONE DIPSTICK (test code = KETU) neg mg/dL NEGATIVE UA SPECIFIC GRAVITY (test code = SGU) 1.015 1.001-1.035 UA BLOOD DIPSTICK (test code = JOMAR) 250 (4+) Zoltan/uL NEGATIVE A UA PH DIPSTICK (test code = SERJIO) 7.0 5.0-8.0 UA PROTEIN DIPSTICK (test code = PROU) 30 (1+) mg/dL Neg-15 A UA UROBILINIOGEN DIPSTICK (test code = URO) 1 mg/dL 0.0-0.2 A UA NITRITE DIPSTICK (test code = NESTOR) POSITIVE NEGATIVE UA LEUKOCYTE ESTERASE DIPSTICK (test code = LEUU) 25 Edgar/uL (Tra ce) uL NEGATIVE A UA WBC (test code = WBCU) 0-5 per HPF 0-5 UA RBC (test code = RBCU) >100 per HPF 0-5 UA EPITHELIAL CELLS (test code = EPIU) Rare (0-1/hpf) per HPF Few UA BACTERIA (test code = BACU) MODERATE per HPF NONE A URINALYSIS W/O [id number] 19:07:00* Test Item Value Reference Range Interpretation Comments UA MICROSCOPIC NEEDED? (test code = UAMICRO) YES URINALYSIS [id number] 19:04:00* Test Item Value Reference Range Interpretation Comments UA COLOR (test code = COLU) DARK YELLOW YELLOW A UA APPEARANCE (test code = APPU) Cloudy CLEAR A UA GLUCOSE DIPSTICK (test code = DGLUU) norm mg/dL NEGATIVE UA BILIRUBIN DIPSTICK (test code = BILU) NEGATIVE mg/dL NEGATIVE UA KETONE DIPSTICK (test code = KETU) neg mg/dL NEGATIVE UA SPECIFIC GRAVITY (test code = SGU) 1.015 1.001-1.035 UA BLOOD DIPSTICK (test code = JOMAR) 250 (4+) Zoltan/uL NEGATIVE A UA PH DIPSTICK (test code = SERJIO) 7.0 5.0-8.0 UA PROTEIN DIPSTICK (test code = PROU) 30 (1+) mg/dL Neg-15 A UA UROBILINIOGEN DIPSTICK (test code = URO) 1 mg/dL 0.0-0.2 A UA NITRITE DIPSTICK (test code = NESTOR) POSITIVE NEGATIVE UA LEUKOCYTE ESTERASE DIPSTICK (test code = LEUU) 25 Edgar/uL (Tra ce) uL NEGATIVE A UA WBC (test code = WBCU) per HPF 0-5 UA RBC (test code = RBCU) per HPF 0-5 UA EPITHELIAL CELLS (test code = EPIU) per HPF Few UA BACTERIA (test code = BACU) per HPF NONE URINALYSIS W/O [id number] 19:04:00* Test Item Value Reference Range Interpretation Comments UA MICROSCOPIC NEEDED? (test code = UAMICRO) YES URINALYSIS [id number] 19:04:00* Test Item Value Reference Range Interpretation Comments UA COLOR (test code = COLU) DARK YELLOW YELLOW A UA APPEARANCE (test code = APPU) Cloudy CLEAR A UA GLUCOSE DIPSTICK (test code = DGLUU) norm mg/dL NEGATIVE UA BILIRUBIN DIPSTICK (test code = BILU) NEGATIVE mg/dL NEGATIVE UA KETONE DIPSTICK (test code = KETU) neg mg/dL NEGATIVE UA SPECIFIC GRAVITY (test code = SGU) 1.015 1.001-1.035 UA BLOOD DIPSTICK (test code = JOMAR) 250 (4+) Zoltan/uL NEGATIVE A UA PH DIPSTICK (test code = SERJIO) 7.0 5.0-8.0 UA PROTEIN DIPSTICK (test code = PROU) 30 (1+) mg/dL Neg-15 A UA UROBILINIOGEN DIPSTICK (test code = URO) 1 mg/dL 0.0-0.2 A UA NITRITE DIPSTICK (test code = NESTOR) POSITIVE NEGATIVE UA LEUKOCYTE ESTERASE DIPSTICK (test code = LEUU) 25 Edgar/uL (Tra ce) uL NEGATIVE A UA WBC (test code = WBCU) per HPF 0-5 UA RBC (test code = RBCU) per HPF 0-5 UA EPITHELIAL CELLS (test code = EPIU) per HPF Few UA BACTERIA (test code = BACU) per HPF NONE URINALYSIS W/O [id number] 19:04:00* Test Item Value Reference Range Interpretation Comments UA MICROSCOPIC NEEDED? (test code = UAMICRO) YES COMPREHENSIVE METABOLIC [id number] 18:20:00* Test Item Value Reference Range Interpretation Comments SODIUM (test code = NA) 136 mmol/L 136-145 N POTASSIUM (test code = K) 3.6 mmol/L 3.5-5.1 N CHLORIDE (test code = CL) 100 mmol/L 101-109 L CARBON DIOXIDE (test code = CO2) 29.3 mmol/L 21-32 N ANION GAP (test code = GAP) 10 mmol/L 10-20 N GLUCOSE (test code = GLU) 94 mg/dL 74-106 N BLOOD UREA NITROGEN (test code = BUN) 14 mg/dL 3-21 N CREATININE (test code = CREAT) 0.71 mg/dL 0.55-1.3 N BUN/CREATININE RATIO (test code = BUN/CREA) 19.7 10-20 N TOTAL PROTEIN (test code = PROT) 8.7 g/dL 6.5-8.4 H ALBUMIN (test code = ALB) 3.8 g/dL 3.4-4.8 N GLOBULIN (test code = GLOB) 4.9 G/DL 1-10 N ALBUMIN/GLOBULIN RATIO (test code = A/G) 0.78 RATIO 0.75-1.50 N CALCIUM (test code = CA) 8.7 mg/dL 8.4-10.2 N BILIRUBIN TOTAL (test code = BILT) 0.40 mg/dL 0.0-1.0 N SGOT/AST (test code = AST) 73 U/L 6-32 H SGPT/ALT (test code = ALT) 88 U/L 12-78 H N ote: Change in REFERENCE RANGE due to new reagent method. ALKALINE PHOSPHATASE TOTAL (test code = ALKP) 137 U/L 38-126 H [id number] 18:20:00* Test Item Value Reference Range Interpretation Comments LIPASE (test code = LIP) 141 U/L 128-270 N [id number] 18:20:00* Test Item Value Reference Range Interpretation Comments TROPONIN-I (test code = TROPI) <0.015 ng/mL 0.00-0.056 N COMPREHENSIVE METABOLIC [id number] 18:10:00* Test Item Value Reference Range Interpretation Comments SODIUM (test code = NA) 136 mmol/L 136-145 N POTASSIUM (test code = K) 3.6 mmol/L 3.5-5.1 N CHLORIDE (test code = CL) 100 mmol/L 101-109 L CARBON DIOXIDE (test code = CO2) 29.3 mmol/L 21-32 N ANION GAP (test code = GAP) 10 mmol/L 10-20 N GLUCOSE (test code = GLU) 94 mg/dL 74-106 N BLOOD UREA NITROGEN (test code = BUN) 14 mg/dL 3-21 N CREATININE (test code = CREAT) 0.71 mg/dL 0.55-1.3 N BUN/CREATININE RATIO (test code = BUN/CREA) 19.7 10-20 N TOTAL PROTEIN (test code = PROT) gram/dL 6.4-8.2 ALBUMIN (test code = ALB) g/dL 3.4-5.0 GLOBULIN (test code = GLOB) g/dL 2.7-4.2 ALBUMIN/GLOBULIN RATIO (test code = A/G) 0.75-1.50 CALCIUM (test code = CA) 8.7 mg/dL 8.4-10.2 N BILIRUBIN TOTAL (test code = BILT) mg/dL 0.2-1.2 SGOT/AST (test code = AST) IUnit/L 15-37 SGPT/ALT (test code = ALT) U/L 10-69 ALKALINE PHOSPHATASE TOTAL (test code = ALKP) IUnit/L 45-117 [id number] 18:10:00* Test Item Value Reference Range Interpretation Comments LIPASE (test code = LIP) Unit/L 144-286 [id number] 18:10:00* Test Item Value Reference Range Interpretation Comments TROPONIN-I (test code = TROPI) ng/mL 0-0.045 CBC W/AUTO [id number] 18:03:00* Test Item Value Reference Range Interpretation Comments WHITE BLOOD CELL (test code = WBC) 6.0 K/mm3 4.5-12.5 N RED BLOOD CELL (test code = RBC) 4.68 mill/mm3 3.7-5.2 N HEMOGLOBIN (test code = HGB) 13.8 gram/dL 11.5-15.5 N HEMATOCRIT (test code = HCT) 41.1 % 36.0-46.0 N MEAN CELL VOLUME (test code = MCV) 87.8 fL 80-98 N MEAN CELL HGB (test code = MCH) 29.5 picogram 27.0-33.0 N MEAN CELL HGB CONCETRATION (test code = MCHC) 33.6 gram/dL 33.0-36. 0 N RED CELL DISTRIBUTION WIDTH (test code = RDW) 12.1 % 11.6-16. 2 N RED CELL DISTRIBUTION WIDTH SD (test code = RDW-SD) 40.3 fL 37 .0-51.0 N PLATELET COUNT (test code = PLT) 190 K/mm3 150-450 N MEAN PLATELET VOLUME (test code = MPV) 10.1 fL 6.7-11.0 N NEUTROPHIL % (test code = NT%) 51.7 % 39.0-69.0 N LYMPHOCYTE % (test code = LY%) 36.5 % 25.0-55.0 N MONOCYTE % (test code = MO%) 9.5 % 0.0-10.0 N EOSINOPHIL % (test code = EO%) 1.8 % 0.0-5.0 N BASOPHIL % (test code = BA%) 0.3 % 0.0-1.0 N NEUTROPHIL # (test code = NT#) 3.11 K/mm3 1.8-7.7 N LYMPHOCYTE # (test code = LY#) 2.20 K/mm3 1.0-5.0 N MONOCYTE # (test code = MO#) 0.57 K/mm3 0-0.8 N EOSINOPHIL # (test code = EO#) 0.11 K/mm3 0.0-0.5 N BASOPHIL # (test code = BA#) 0.02 K/mm3 0.0-0.2 N MANUAL DIFF REQUIRED (test code = MDIFF) NO - US ABDOMEN [id number] 23:24:00 Name: ANAFLEX [facility] : 1975 Age/S: 43 / F [address] [facility] Unit #: [id number] Loc: [place] [address] Phys: Luis Miguel Strauss MD Acct: [id number] Dis Date: Status: REG ER PHONE #: [phone] Exam Date: 08/22/2018 2307 FAX #: [phone] Reason: RUQ pain EXAMS: CPT CODE: [id number] US ABDOMEN LTD 07916 EXAM: - US ABDOMEN LTD HISTORY: Pain COMPARISON: None available time of interpretation. TECHNIQUE: Grayscale B-mode and color Doppler sonographic images of the right upper quadrant were obtained. FINDINGS: The gallbladder is normal appearance with no cholelithiasis. No significant gallbladder wall thickening or pericholecystic fluid. The common bile duct is within normal limits measuring 5 mm. Hepatopedal flow is present in main portal vein. No focal liver lesion is demonstrated. The visualized right kidney, IVC, aorta and pancreas show no significant abnormalities. No free fluid. Limited exam. IMPRESSION: 1. No significant abnormalities. at 4482 Reported and signed by: Spencer Merritt MD CC: Luis Miguel Strauss MD Technologist: Bonnie Vides RT(S), MS Trnscb Date/Time: 08/22/2018 (1605) t.RADHAR.MKM4 Orig Print D/T: S: 08/22/2018 (5574) Probe: PAGE 1 Signed Report BASIC METABOLIC [id number] 22:16:00* Test Item Value Reference Range Interpretation Comments SODIUM (test code = NA) 138 mmol/L 136-145 N POTASSIUM (test code = K) 3.5 mmol/L 3.5-5.1 N CHLORIDE (test code = CL) 104.0 mmol/L 98-107 N CARBON DIOXIDE (test code = CO2) 29.0 mmol/L 21-32 N ANION GAP (test code = GAP) 8.5 10-20 L GLUCOSE (test code = GLU) 97 mg/dL 74-106 N BLOOD UREA NITROGEN (test code = BUN) 15 mg/dL 7-18 N GLOMERULAR FILTRATION RATE (test code = GFR) > 60 mL/min >=60 Estimated GFR by using Modified MDRD formula.Chronic kidney disease is defined as either kidney damageor GFR <60 mL/min/1.73 m2 for >3 months. CREATININE (test code = CREAT) 0.70 mg/dL 0.55-1.02 N Note change in reference range due to change in reagent. BUN/CREATININE RATIO (test code = BUN/CREA) 20.3 10-20 H CALCIUM (test code = CA) 9.4 mg/dL 8.5-10.1 N HEPATIC FUNCTION [id number] 22:16:00* Test Item Value Reference Range Interpretation Comments TOTAL PROTEIN (test code = PROT) 8.1 gram/dL 6.4-8.2 N ALBUMIN (test code = ALB) 3.7 g/dL 3.4-5.0 N GLOBULIN (test code = GLOB) 4.4 gram/dL 2.7-4.2 H ALBUMIN/GLOBULIN RATIO (test code = A/G) 0.8 0.75-1.50 N BILIRUBIN TOTAL (test code = BILT) 0.40 mg/dL 0.0-1.0 N BILIRUBIN DIRECT (test code = BILD) 0.12 mg/dL 0.0-0.20 N SGOT/AST (test code = AST) 70 IUnit/L 15-37 H SGPT/ALT (test code = ALT) 89 IUnit/L 12-78 H ALKALINE PHOSPHATASE TOTAL (test code = ALKP) 132 IUnit/L 45-117 H Note change in reference range due to change in reagent. [id number] 22:16:00* Test Item Value Reference Range Interpretation Comments LIPASE (test code = LIP) 129 U/L 73.0-393.0 N HCG SERUM [id number] 22:16:00* Test Item Value Reference Range Interpretation Comments HCG SERUM QUAL (test code = HCGQL) NEGATIVE NEGATIVE This HCGQL test is NOT applicable for MALE patients.Check with nurse about probable order error.If Tumor Marker Test needed, nurse should order test "HCGTU"(Test #550.91967) BASIC METABOLIC [id number] 22:11:00* Test Item Value Reference Range Interpretation Comments SODIUM (test code = NA) mmol/L 136-145 POTASSIUM (test code = K) mmol/L 3.5-5.1 CHLORIDE (test code = CL) mmol/L 98-107 CARBON DIOXIDE (test code = CO2) mmol/L 21-32 ANION GAP (test code = GAP) 10-20 GLUCOSE (test code = GLU) mg/dL 74-106 BLOOD UREA NITROGEN (test code = BUN) mg/dL 7-18 GLOMERULAR FILTRATION RATE (test code = GFR) mL/min >=60 CREATININE (test code = CREAT) mg/dL 0.55-1.02 BUN/CREATININE RATIO (test code = BUN/CREA) 10-20 CALCIUM (test code = CA) mg/dL 8.5-10.1 HEPATIC FUNCTION [id number] 22:11:00* Test Item Value Reference Range Interpretation Comments TOTAL PROTEIN (test code = PROT) gram/dL 6.4-8.2 ALBUMIN (test code = ALB) g/dL 3.4-5.0 GLOBULIN (test code = GLOB) gram/dL 2.7-4.2 ALBUMIN/GLOBULIN RATIO (test code = A/G) 0.75-1.50 BILIRUBIN TOTAL (test code = BILT) mg/dL 0.0-1.0 BILIRUBIN DIRECT (test code = BILD) mg/dL 0.0-0.20 SGOT/AST (test code = AST) IUnit/L 15-37 SGPT/ALT (test code = ALT) IUnit/L 12-78 ALKALINE PHOSPHATASE TOTAL (test code = ALKP) IUnit/L 45-117 [id number] 22:11:00* Test Item Value Reference Range Interpretation Comments LIPASE (test code = LIP) U/L 73.0-393.0 HCG SERUM [id number] 22:11:00* Test Item Value Reference Range Interpretation Comments HCG SERUM QUAL (test code = HCGQL) NEGATIVE NEGATIVE This HCGQL test is NOT applicable for MALE patients.Check with nurse about probable order error.If Tumor Marker Test needed, nurse should order test "HCGTU"(Test #[id number]) BASIC METABOLIC [id number] 22:11:00* Test Item Value Reference Range Interpretation Comments SODIUM (test code = NA) 138 mmol/L 136-145 N POTASSIUM (test code = K) 3.5 mmol/L 3.5-5.1 N CHLORIDE (test code = CL) 104.0 mmol/L 98-107 N CARBON DIOXIDE (test code = CO2) mmol/L 21-32 ANION GAP (test code = GAP) 10-20 GLUCOSE (test code = GLU) mg/dL 74-106 BLOOD UREA NITROGEN (test code = BUN) mg/dL 7-18 GLOMERULAR FILTRATION RATE (test code = GFR) mL/min >=60 CREATININE (test code = CREAT) mg/dL 0.55-1.02 BUN/CREATININE RATIO (test code = BUN/CREA) 10-20 CALCIUM (test code = CA) mg/dL 8.5-10.1 HEPATIC FUNCTION [id number] 22:11:00* Test Item Value Reference Range Interpretation Comments TOTAL PROTEIN (test code = PROT) gram/dL 6.4-8.2 ALBUMIN (test code = ALB) g/dL 3.4-5.0 GLOBULIN (test code = GLOB) gram/dL 2.7-4.2 ALBUMIN/GLOBULIN RATIO (test code = A/G) 0.75-1.50 BILIRUBIN TOTAL (test code = BILT) mg/dL 0.0-1.0 BILIRUBIN DIRECT (test code = BILD) mg/dL 0.0-0.20 SGOT/AST (test code = AST) IUnit/L 15-37 SGPT/ALT (test code = ALT) IUnit/L 12-78 ALKALINE PHOSPHATASE TOTAL (test code = ALKP) IUnit/L 45-117 [id number] 22:11:00* Test Item Value Reference Range Interpretation Comments LIPASE (test code = LIP) U/L 73.0-393.0 HCG SERUM [id number] 22:11:00* Test Item Value Reference Range Interpretation Comments HCG SERUM QUAL (test code = HCGQL) NEGATIVE NEGATIVE This HCGQL test is NOT applicable for MALE patients.Check with nurse about probable order error.If Tumor Marker Test needed, nurse should order test "HCGTU"(Test #550.30779) URINALYSIS [id number] 22:05:00* Test Item Value Reference Range Interpretation Comments UA COLOR (test code = COLU) Light-Yellow YELLOW UA APPEARANCE (test code = APPU) CLEAR CLEAR UA GLUCOSE DIPSTICK (test code = DGLUU) NEGATIVE mg/dL NEGATIVE UA BILIRUBIN DIPSTICK (test code = BILU) NEGATIVE mg/dL NEGATIVE UA KETONE DIPSTICK (test code = KETU) NEGATIVE mg/dL NEGATIVE UA SPECIFIC GRAVITY (test code = SGU) 1.026 1.001-1.035 UA BLOOD DIPSTICK (test code = JOMAR) Negative mg/dL NEGATIVE UA PH DIPSTICK (test code = SERJIO) 5.5 5.0-8.0 UA PROTEIN DIPSTICK (test code = PROU) NEGATIVE mg/dL NEGATIVE UA UROBILINIOGEN DIPSTICK (test code = URO) Normal mg/dL NEGATIVE UA NITRITE DIPSTICK (test code = NESTOR) NEGATIVE NEGATIVE UA LEUKOCYTE ESTERASE W REFLEX (test code = LEUUR) NEGATIVE Edgar/uL NEGATIVE UA WBC (test code = WBCU) 0-5 per HPF 0-5 UA RBC (test code = RBCU) NONE SEEN #/HPF 0-5 UA EPITHELIAL CELLS (test code = EPIU) FEW per HPF FEW UA BACTERIA (test code = BACU) FEW #/HPF NONE A UA MUCUS (test code = MUCU) FEW #/LPF FEW Urine Source? Clean CatchCBC W/O [id number] 21:59:00* Test Item Value Reference Range Interpretation Comments WHITE BLOOD CELL (test code = WBC) 6.4 K/mm3 4.5-12.5 N RED BLOOD CELL (test code = RBC) 4.33 mill/mm3 3.7-5.2 N HEMOGLOBIN (test code = HGB) 12.8 gram/dL 11.5-15.5 N HEMATOCRIT (test code = HCT) 39.0 % 36.0-46.0 N MEAN CELL VOLUME (test code = MCV) 90.1 fL 80-98 N MEAN CELL HGB (test code = MCH) 29.6 picogram 27.0-33.0 N MEAN CELL HGB CONCETRATION (test code = MCHC) 32.8 gram/dL 33.0-36. 0 L RED CELL DISTRIBUTION WIDTH (test code = RDW) 12.3 % 11.6-16. 2 N PLATELET COUNT (test code = PLT) 177 K/mm3 150-450 N MEAN PLATELET VOLUME (test code = MPV) 10.4 fL 6.7-11.0 N URINALYSIS [id number] 21:58:00* Test Item Value Reference Range Interpretation Comments UA COLOR (test code = COLU) Light-Yellow YELLOW UA APPEARANCE (test code = APPU) CLEAR CLEAR UA GLUCOSE DIPSTICK (test code = DGLUU) NEGATIVE mg/dL NEGATIVE UA BILIRUBIN DIPSTICK (test code = BILU) NEGATIVE mg/dL NEGATIVE UA KETONE DIPSTICK (test code = KETU) NEGATIVE mg/dL NEGATIVE UA SPECIFIC GRAVITY (test code = SGU) 1.026 1.001-1.035 UA BLOOD DIPSTICK (test code = JOMAR) Negative mg/dL NEGATIVE UA PH DIPSTICK (test code = SERJIO) 5.5 5.0-8.0 UA PROTEIN DIPSTICK (test code = PROU) NEGATIVE mg/dL NEGATIVE UA UROBILINIOGEN DIPSTICK (test code = URO) Normal mg/dL NEGATIVE UA NITRITE DIPSTICK (test code = NESTOR) NEGATIVE NEGATIVE UA LEUKOCYTE ESTERASE W REFLEX (test code = LEUUR) NEGATIVE Edgar/uL NEGATIVE UA WBC (test code = WBCU) per HPF 0-5 UA RBC (test code = RBCU) per HPF 0-5 UA EPITHELIAL CELLS (test code = EPIU) per HPF Few UA BACTERIA (test code = BACU) per HPF NONE Urine Source? Clean CatchBASIC METABOLIC [id number] 22:24:00* Test Item Value Reference Range Interpretation Comments SODIUM (test code = NA) 137 mmol/L 136-145 N POTASSIUM (test code = K) 3.9 mmol/L 3.5-5.1 N CHLORIDE (test code = CL) 106.0 mmol/L 98-107 N CARBON DIOXIDE (test code = CO2) 24.0 mmol/L 21-32 N ANION GAP (test code = GAP) 10.9 10-20 N GLUCOSE (test code = GLU) 97 mg/dL 74-106 N BLOOD UREA NITROGEN (test code = BUN) 13 mg/dL 7-18 N GLOMERULAR FILTRATION RATE (test code = GFR) > 60 mL/min >=60 Estimated GFR by using Modified MDRD formula.Chronic kidney disease is defined as either kidney damageor GFR <60 mL/min/1.73 m2 for >3 months. CREATININE (test code = CREAT) 0.70 mg/dL 0.55-1.02 N Note change in reference range due to change in reagent. BUN/CREATININE RATIO (test code = BUN/CREA) 18.6 10-20 N CALCIUM (test code = CA) 8.6 mg/dL 8.5-10.1 N HEPATIC FUNCTION [id number] 22:24:00* Test Item Value Reference Range Interpretation Comments TOTAL PROTEIN (test code = PROT) 8.1 gram/dL 6.4-8.2 N ALBUMIN (test code = ALB) 3.6 g/dL 3.4-5.0 N GLOBULIN (test code = GLOB) 4.5 gram/dL 2.7-4.2 H ALBUMIN/GLOBULIN RATIO (test code = A/G) 0.8 0.75-1.50 N BILIRUBIN TOTAL (test code = BILT) 0.40 mg/dL 0.0-1.0 N BILIRUBIN DIRECT (test code = BILD) 0.10 mg/dL 0.0-0.20 N SGOT/AST (test code = AST) 65 IUnit/L 15-37 H SGPT/ALT (test code = ALT) 83 IUnit/L 12-78 H ALKALINE PHOSPHATASE TOTAL (test code = ALKP) 116 IUnit/L 45-117 N Note change in reference range due to change in reagent. [id number] 22:24:00* Test Item Value Reference Range Interpretation Comments LIPASE (test code = LIP) 108 U/L 73.0-393.0 N HCG SERUM [id number] 22:24:00* Test Item Value Reference Range Interpretation Comments HCG SERUM QUAL (test code = HCGQL) NEGATIVE NEGATIVE This HCGQL test is NOT applicable for MALE patients.Check with nurse about probable order error.If Tumor Marker Test needed, nurse should order test "HCGTU"(Test #550.46478) [id number] 22:24:00* Test Item Value Reference Range Interpretation Comments TROPONIN-I (test code = TROPI) <0.015 ng/mL 0-0.045 N BASIC METABOLIC [id number] 22:16:00* Test Item Value Reference Range Interpretation Comments SODIUM (test code = NA) 137 mmol/L 136-145 N POTASSIUM (test code = K) 3.9 mmol/L 3.5-5.1 N CHLORIDE (test code = CL) 106.0 mmol/L 98-107 N CARBON DIOXIDE (test code = CO2) 24.0 mmol/L 21-32 N ANION GAP (test code = GAP) 10.9 10-20 N GLUCOSE (test code = GLU) 97 mg/dL 74-106 N BLOOD UREA NITROGEN (test code = BUN) 13 mg/dL 7-18 N GLOMERULAR FILTRATION RATE (test code = GFR) > 60 mL/min >=60 Estimated GFR by using Modified MDRD formula.Chronic kidney disease is defined as either kidney damageor GFR <60 mL/min/1.73 m2 for >3 months. CREATININE (test code = CREAT) 0.70 mg/dL 0.55-1.02 N Note change in reference range due to change in reagent. BUN/CREATININE RATIO (test code = BUN/CREA) 18.6 10-20 N CALCIUM (test code = CA) 8.6 mg/dL 8.5-10.1 N HEPATIC FUNCTION [id number] 22:16:00* Test Item Value Reference Range Interpretation Comments TOTAL PROTEIN (test code = PROT) 8.1 gram/dL 6.4-8.2 N ALBUMIN (test code = ALB) 3.6 g/dL 3.4-5.0 N GLOBULIN (test code = GLOB) 4.5 gram/dL 2.7-4.2 H ALBUMIN/GLOBULIN RATIO (test code = A/G) 0.8 0.75-1.50 N BILIRUBIN TOTAL (test code = BILT) 0.40 mg/dL 0.0-1.0 N BILIRUBIN DIRECT (test code = BILD) 0.10 mg/dL 0.0-0.20 N SGOT/AST (test code = AST) 65 IUnit/L 15-37 H SGPT/ALT (test code = ALT) 83 IUnit/L 12-78 H ALKALINE PHOSPHATASE TOTAL (test code = ALKP) 116 IUnit/L 45-117 N Note change in reference range due to change in reagent. [id number] 22:16:00* Test Item Value Reference Range Interpretation Comments LIPASE (test code = LIP) 108 U/L 73.0-393.0 N HCG SERUM [id number] 22:16:00* Test Item Value Reference Range Interpretation Comments HCG SERUM QUAL (test code = HCGQL) NEGATIVE [id number] 22:16:00* Test Item Value Reference Range Interpretation Comments TROPONIN-I (test code = TROPI) <0.015 ng/mL 0-0.045 N BASIC METABOLIC [id number] 22:08:00* Test Item Value Reference Range Interpretation Comments SODIUM (test code = NA) 137 mmol/L 136-145 N POTASSIUM (test code = K) 3.9 mmol/L 3.5-5.1 N CHLORIDE (test code = CL) 106.0 mmol/L 98-107 N CARBON DIOXIDE (test code = CO2) mmol/L 21-32 ANION GAP (test code = GAP) 10-20 GLUCOSE (test code = GLU) mg/dL 74-106 BLOOD UREA NITROGEN (test code = BUN) mg/dL 7-18 GLOMERULAR FILTRATION RATE (test code = GFR) mL/min >=60 CREATININE (test code = CREAT) mg/dL 0.55-1.02 BUN/CREATININE RATIO (test code = BUN/CREA) 10-20 CALCIUM (test code = CA) mg/dL 8.5-10.1 HEPATIC FUNCTION [id number] 22:08:00* Test Item Value Reference Range Interpretation Comments TOTAL PROTEIN (test code = PROT) gram/dL 6.4-8.2 ALBUMIN (test code = ALB) g/dL 3.4-5.0 GLOBULIN (test code = GLOB) gram/dL 2.7-4.2 ALBUMIN/GLOBULIN RATIO (test code = A/G) 0.75-1.50 BILIRUBIN TOTAL (test code = BILT) mg/dL 0.0-1.0 BILIRUBIN DIRECT (test code = BILD) mg/dL 0.0-0.20 SGOT/AST (test code = AST) IUnit/L 15-37 SGPT/ALT (test code = ALT) IUnit/L 12-78 ALKALINE PHOSPHATASE TOTAL (test code = ALKP) IUnit/L 45-117 [id number] 22:08:00* Test Item Value Reference Range Interpretation Comments LIPASE (test code = LIP) U/L 73.0-393.0 HCG SERUM [id number] 22:08:00* Test Item Value Reference Range Interpretation Comments HCG SERUM QUAL (test code = HCGQL) NEGATIVE [id number] 22:08:00* Test Item Value Reference Range Interpretation Comments TROPONIN-I (test code = TROPI) ng/mL 0-0.045 - DUP AB/PEL/SC [id number] 21:54:00 Name: FLEX P[facility] : 1975 Age/S: 43 / F [address] Unit #: [id number] Loc: [facility] [place] [address] Phys: Zafar Stephens [employer]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 Images from endovaginal probe were also acquired for better visualization of endometrial canal and adnexal structures. COMPARISON: None IMPRESSION: Hysterectomy. Complex nabothian cysts within the residual cervix. Right ovary measures 1.8 x 0.9 x 1.2 cm. No mass or dominant cyst. Satisfactory color Doppler flow and spectral waveform is detected. Left ovary is not visualized. No adnexal mass. No pelvic free fluid. at 2154 Reported and signed by: Debi Vieyra D.O. 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 Images from endovaginal probe were also acquired for better visualization of endometrial canal and adnexal structures. COMPARISON: None IMPRESSION: Hysterectomy. Complex nabothian cysts within the residual cervix. Right ovary measures 1.8 x 0.9 x 1.2 cm. No mass or dominant cyst. Satisfactory color Doppler flow and spectral waveform is detected. Left ovary is not visualized. No adnexal mass. No pelvic free fluid. at 2154 Reported and signed by: Debi Vieyra D.O. 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 Images from endovaginal probe were also acquired for better visualization of endometrial canal and adnexal structures. COMPARISON: None IMPRESSION: Hysterectomy. Complex nabothian cysts within the residual cervix. Right ovary measures 1.8 x 0.9 x 1.2 cm. No mass or dominant cyst. Satisfactory color Doppler flow and spectral waveform is detected. Left ovary is not visualized. No adnexal mass. No pelvic free fluid. at 2154 Reported and signed by: Debi Vieyra D.O. CC: Ruthie Lauren MD; Zafar Stephens NP Technologist: Bonnie Vides RT(S), [facility] Trnscb Date/Time: 08/17/2018 (2153) [email or web address] Orig Print D/T: S: 08/17/2018 (2156) Probe: PAGE 1 Signed Report URINALYSIS [id number] 21:50:00* Test Item Value Reference Range Interpretation Comments UA COLOR (test code = COLU) Light-[place] YELLOW UA APPEARANCE (test code = APPU) TURBID CLEAR A UA GLUCOSE DIPSTICK (test code = DGLUU) NEGATIVE mg/dL NEGATIVE UA BILIRUBIN DIPSTICK (test code = BILU) NEGATIVE mg/dL NEGATIVE UA KETONE DIPSTICK (test code = KETU) NEGATIVE mg/dL NEGATIVE UA SPECIFIC GRAVITY (test code = SGU) 1.024 1.001-1.035 UA BLOOD DIPSTICK (test code = JOMAR) >1.0 mg/dL NEGATIVE UA PH DIPSTICK (test code = SERJIO) 5.5 5.0-8.0 UA PROTEIN DIPSTICK (test code = PROU) 100 (2+) mg/dL NEGATIVE A UA UROBILINIOGEN DIPSTICK (test code = URO) Normal mg/dL NEGATIVE UA NITRITE DIPSTICK (test code = NESTOR) NEGATIVE NEGATIVE UA LEUKOCYTE ESTERASE W REFLEX (test code = LEUUR) NEGATIVE Edgar/uL NEGATIVE UA WBC (test code = WBCU) 0-5 per HPF 0-5 UA RBC (test code = RBCU) >200 #/HPF 0-5 UA EPITHELIAL CELLS (test code = EPIU) FEW per HPF FEW UA BACTERIA (test code = BACU) MANY #/HPF NONE A UA MUCUS (test code = MUCU) MANY #/LPF FEW A UA AMORPHOUS SEDIMENT (test code = AMORU) FEW #/LPF NONE Urine Source? Clean CatchCBC W/O [id number] 21:27:00* Test Item Value Reference Range Interpretation Comments WHITE BLOOD CELL (test code = WBC) 5.4 K/mm3 4.5-12.5 N RED BLOOD CELL (test code = RBC) 4.38 mill/mm3 3.7-5.2 N HEMOGLOBIN (test code = HGB) 13.1 gram/dL 11.5-15.5 N HEMATOCRIT (test code = HCT) 39.4 % 36.0-46.0 N MEAN CELL VOLUME (test code = MCV) 90.0 fL 80-98 N MEAN CELL HGB (test code = MCH) 29.9 picogram 27.0-33.0 N MEAN CELL HGB CONCETRATION (test code = MCHC) 33.2 gram/dL 33.0-36. 0 N RED CELL DISTRIBUTION WIDTH (test code = RDW) 12.4 % 11.6-16. 2 N PLATELET COUNT (test code = PLT) 151 K/mm3 150-450 N MEAN PLATELET VOLUME (test code = MPV) 10.4 fL 6.7-11.0 N CBC W/O [id number] 21:26:00* Test Item Value Reference Range Interpretation Comments WHITE BLOOD CELL (test code = WBC) K/mm3 4.5-12.5 RED BLOOD CELL (test code = RBC) mill/mm3 3.7-5.2 HEMOGLOBIN (test code = HGB) 13.1 gram/dL 11.5-15.5 N HEMATOCRIT (test code = HCT) 39.4 % 36.0-46.0 N MEAN CELL VOLUME (test code = MCV) fL 80-98 MEAN CELL HGB (test code = MCH) picogram 27.0-33.0 MEAN CELL HGB CONCETRATION (test code = MCHC) gram/dL 33.0-36. 0 RED CELL DISTRIBUTION WIDTH (test code = RDW) % 11.6-16. 2 PLATELET COUNT (test code = PLT) K/mm3 150-450 MEAN PLATELET VOLUME (test code = MPV) fL 6.7-11.0 BASIC METABOLIC [id number] 12:52:00* Test Item Value Reference Range Interpretation Comments SODIUM (test code = NA) 138 mmol/L 136-145 N POTASSIUM (test code = K) 3.6 mmol/L 3.5-5.1 N CHLORIDE (test code = CL) 103 mmol/L 101-109 N CARBON DIOXIDE (test code = CO2) 27.2 mmol/L 21-32 N ANION GAP (test code = GAP) 11 mmol/L 10-20 N GLUCOSE (test code = GLU) 102 mg/dL 74-106 N BLOOD UREA NITROGEN (test code = BUN) 11 mg/dL 3-21 N GLOMERULAR FILTRATION RATE (test code = GFR) > 60 mL/min >=60 Estimated GFR by using Modified MDRD formula.Chronic kidney disease is defined as either kidney damageor GFR <60 mL/min/1.73 m2 for >3 months. CREATININE (test code = CREAT) 0.70 mg/dL 0.55-1.3 N BUN/CREATININE RATIO (test code = BUN/CREA) 15.7 10-20 N CALCIUM (test code = CA) 7.7 mg/dL 8.4-10.2 L HEPATIC FUNCTION [id number] 12:52:00* Test Item Value Reference Range Interpretation Comments TOTAL PROTEIN (test code = PROT) 8.0 g/dL 6.5-8.4 N ALBUMIN (test code = ALB) 3.4 g/dL 3.4-4.8 N GLOBULIN (test code = GLOB) 4.6 G/DL 1-10 N ALBUMIN/GLOBULIN RATIO (test code = A/G) 0.74 RATIO 0.75-1.50 L BILIRUBIN TOTAL (test code = BILT) 0.40 mg/dL 0.0-1.0 N BILIRUBIN DIRECT (test code = BILD) 0.10 mg/dL 0.0-0.30 N SGOT/AST (test code = AST) 76 U/L 6-32 H SGPT/ALT (test code = ALT) 101 U/L 12-78 H N ote: Change in REFERENCE RANGE due to new reagent method. ALKALINE PHOSPHATASE TOTAL (test code = ALKP) 110 U/L 38-126 N [id number] 12:52:00* Test Item Value Reference Range Interpretation Comments LIPASE (test code = LIP) 113 U/L 128-270 L HCG SERUM [id number] 12:52:00* Test Item Value Reference Range Interpretation Comments HCG SERUM QUAL (test code = HCGQL) NEGATIVE NEGATIVE This HCGQL test is NOT applicable for MALE patients.Check with nurse about probable order error.If Tumor Marker Test needed, nurse should order test "HCGTU"(Test #550.22423) URINALYSIS [id number] 12:34:00* Test Item Value Reference Range Interpretation Comments UA COLOR (test code = COLU) YELLOW YELLOW UA APPEARANCE (test code = APPU) CLEAR CLEAR UA GLUCOSE DIPSTICK (test code = DGLUU) norm mg/dL NEGATIVE UA BILIRUBIN DIPSTICK (test code = BILU) NEGATIVE mg/dL NEGATIVE UA KETONE DIPSTICK (test code = KETU) neg mg/dL NEGATIVE UA SPECIFIC GRAVITY (test code = SGU) 1.020 1.001-1.035 UA BLOOD DIPSTICK (test code = JOMAR) 10 (Trace) Zoltan/uL NEGATIVE A UA PH DIPSTICK (test code = SERJIO) 5.0 5.0-8.0 UA PROTEIN DIPSTICK (test code = PROU) 15 (TRACE) mg/dL Neg-15 A UA UROBILINIOGEN DIPSTICK (test code = URO) norm mg/dL 0.0-0.2 UA NITRITE DIPSTICK (test code = NESTOR) NEGATIVE NEGATIVE UA LEUKOCYTE ESTERASE DIPSTICK (test code = LEUU) neg uL NEGA TIVE UA WBC (test code = WBCU) 3-5 per HPF 0-5 UA RBC (test code = RBCU) 0-2 per HPF 0-5 UA EPITHELIAL CELLS (test code = EPIU) FEW per HPF Few UA BACTERIA (test code = BACU) MODERATE per HPF NONE A Urine Source? Clean CatchURINALYSIS [id number] 12:07:00* Test Item Value Reference Range Interpretation Comments UA COLOR (test code = COLU) YELLOW YELLOW UA APPEARANCE (test code = APPU) CLEAR CLEAR UA GLUCOSE DIPSTICK (test code = DGLUU) norm mg/dL NEGATIVE UA BILIRUBIN DIPSTICK (test code = BILU) NEGATIVE mg/dL NEGATIVE UA KETONE DIPSTICK (test code = KETU) neg mg/dL NEGATIVE UA SPECIFIC GRAVITY (test code = SGU) 1.020 1.001-1.035 UA BLOOD DIPSTICK (test code = JOMAR) 10 (Trace) Zoltan/uL NEGATIVE A UA PH DIPSTICK (test code = SERJIO) 5.0 5.0-8.0 UA PROTEIN DIPSTICK (test code = PROU) 15 (TRACE) mg/dL Neg-15 A UA UROBILINIOGEN DIPSTICK (test code = URO) norm mg/dL 0.0-0.2 UA NITRITE DIPSTICK (test code = NESTOR) NEGATIVE NEGATIVE UA LEUKOCYTE ESTERASE DIPSTICK (test code = LEUU) neg uL NEGA TIVE UA WBC (test code = WBCU) per HPF 0-5 UA RBC (test code = RBCU) per HPF 0-5 UA EPITHELIAL CELLS (test code = EPIU) per HPF Few UA BACTERIA (test code = BACU) per HPF NONE Urine Source? Clean CatchBASIC METABOLIC [id number] 11:50:00* Test Item Value Reference Range Interpretation Comments SODIUM (test code = NA) 138 mmol/L 136-145 N POTASSIUM (test code = K) 3.6 mmol/L 3.5-5.1 N CHLORIDE (test code = CL) 103 mmol/L 101-109 N CARBON DIOXIDE (test code = CO2) 27.2 mmol/L 21-32 N ANION GAP (test code = GAP) 11 mmol/L 10-20 N GLUCOSE (test code = GLU) 102 mg/dL 74-106 N BLOOD UREA NITROGEN (test code = BUN) 11 mg/dL 3-21 N GLOMERULAR FILTRATION RATE (test code = GFR) > 60 mL/min >=60 Estimated GFR by using Modified MDRD formula.Chronic kidney disease is defined as either kidney damageor GFR <60 mL/min/1.73 m2 for >3 months. CREATININE (test code = CREAT) 0.70 mg/dL 0.55-1.3 N BUN/CREATININE RATIO (test code = BUN/CREA) 15.7 10-20 N CALCIUM (test code = CA) 7.7 mg/dL 8.4-10.2 L HEPATIC FUNCTION [id number] 11:50:00* Test Item Value Reference Range Interpretation Comments TOTAL PROTEIN (test code = PROT) 8.0 g/dL 6.5-8.4 N ALBUMIN (test code = ALB) 3.4 g/dL 3.4-4.8 N GLOBULIN (test code = GLOB) 4.6 G/DL 1-10 N ALBUMIN/GLOBULIN RATIO (test code = A/G) 0.74 RATIO 0.75-1.50 L BILIRUBIN TOTAL (test code = BILT) 0.40 mg/dL 0.0-1.0 N BILIRUBIN DIRECT (test code = BILD) 0.10 mg/dL 0.0-0.30 N SGOT/AST (test code = AST) 76 U/L 6-32 H SGPT/ALT (test code = ALT) 101 U/L 12-78 H N ote: Change in REFERENCE RANGE due to new reagent method. ALKALINE PHOSPHATASE TOTAL (test code = ALKP) 110 U/L 38-126 N [id number] 11:50:00* Test Item Value Reference Range Interpretation Comments LIPASE (test code = LIP) 113 U/L 128-270 L HCG SERUM [id number] 11:50:00* Test Item Value Reference Range Interpretation Comments HCG SERUM QUAL (test code = HCGQL) NEGATIVE CBC W/O [id number] 11:41:00* Test Item Value Reference Range Interpretation Comments WHITE BLOOD CELL (test code = WBC) 4.5 K/mm3 4.5-12.5 N RED BLOOD CELL (test code = RBC) 4.52 mill/mm3 3.7-5.2 N HEMOGLOBIN (test code = HGB) 13.5 gram/dL 11.5-15.5 N HEMATOCRIT (test code = HCT) 39.9 % 36.0-46.0 N MEAN CELL VOLUME (test code = MCV) 88.3 fL 80-98 N MEAN CELL HGB (test code = MCH) 29.9 picogram 27.0-33.0 N MEAN CELL HGB CONCETRATION (test code = MCHC) 33.8 gram/dL 33.0-36. 0 N RED CELL DISTRIBUTION WIDTH (test code = RDW) 12.5 % 11.6-16. 2 N RED CELL DISTRIBUTION WIDTH SD (test code = RDW-SD) 41.3 fL 37 .0-51.0 N PLATELET COUNT (test code = PLT) 176 K/mm3 150-450 N MEAN PLATELET VOLUME (test code = MPV) 10.1 fL 6.7-11.0 N - XR CHEST 1 [id number] 19:07:00 Name: FLEX PEREZ [facility] : 1975 Age/S:42 /F [address] [facility] Unit#:[id number] Loc: [place] [address] Phys: Paola Jimenez MD Dis Date: PHONE #: [phone] Status: DEP ER FAX #: [phone] Exam Date: 02/18/2018 Reason: CHEST PAIN EXAMS: CPT CODE: [id number] XR CHEST 1 V 14831 REASON FOR EXAM: CHEST PAIN EXAM ORDER DATE: 02/18/2018 6:18 PM Ordering MAlex: Paola Jimenez MD PROCEDURE: - XR CHEST 1 V COMPARISON: FINDINGS: Portable AP frontal view of the chest obtained at 6:46 PM shows clear lungs. There is no evidence of consolidation. There is no evidence of effusion. The heart size is within normal limits. Pulmonary vasculatures are unremarkable. IMPRESSION: No active disease. at 1907 Reported and signed by: Lloyd Aj M.D. CC: Paola Jimenez MD Technologist: BARRON GUZMÁN, RT(R),CT Trnscrpt Data: 02/18/2018 (1906) [email or web address] Orig Print D/T: S: 02/18/2018 (1910) PAGE 1 Signed Report - XR CHEST 1 [id number] 00:19:00 Name: FLEX PEREZ [facility] : 1975 Age/S:42 /F [address] [facility] Unit#:[id number] Loc: [place] [address] Phys: Mohit Dubois MD Dis Date: PHONE #: [phone] Status: DEP ER FAX #: [phone] Exam Date: 11/02/2017 Reason: CHEST PAIN EXAMS: CPT CODE: [id number] XR CHEST 1 V 06093 HISTORY: Chest pain. Location: C3 COMPARISON:None FINDINGS: Heart size is upper normal. Vascularity is upper normal as well. The lungs are clear of focal consolidation. No effusion, pneumothorax, or acute osseous abnormality. IMPRESSION: 1. No focal consolidation. No other acute abnormalities. at 0019 Reported and signed by: Elmer Mcadams MD CC: Mohit Dubois MD Technologist: Fanta Llanes Trnscrpt Data: 11/02/2017 (0019) [email or web address] Orig Print D/T: S: 11/02/2017 (0022) PAGE 1 Signed Report - CT ANGIO CHEST 2017-07-20 17:44:00 Name: ANAFLEX CLARENCE [facility] : 1975 Age/S: 42 / F [address] [place] [address] Unit #: [id number] Loc: [place] [address] Phys: Dwayne Ford DO Acct: [id number] Dis Date: Status: [facility] ER PHONE #: [phone] Exam Date: 07/20/2017 1703 FAX #: [phone] Reason: left arm numbness/ left arm cyanosis EXAMS: CPT CODE: [id number] CT ANGIO CHEST [address] CHEST CTA WITH CONTRAST WITH 3D RECONSTRUCTIONS. INDICATION: Acute left arm numbness and left arm cyanosis for 2 days. Left leg pain for 2 days. Shortness of breath. COMPARISON: None. TECHNIQUE: Helical axial images were obtained from the level of the thoracic inlet to the diaphragm at [address] angiographic protocol with coronal and sagittal reconstructions. 3- dimensional reconstructed/reformatted images were also performed and reviewed. IV contrast: 100 mL Isovue-300 DLP: 371 mGy-cm FINDINGS: MEDIASTINUM: No mediastinal lymphadenopathy. Trachea is free of masses. Esophagus appears unremarkable. HEART: Heart is normal in size without significant volume pericardial fluid. GREAT VESSELS: Thoracic aorta is normal in caliber without evidence for dissection flaps or flow-limiting stenosis. No filling defects identified in the main pulmonary arteries or proximal segmental branches bilaterally. Visualized portions of the proximal left subclavian artery which are included in the [id number] are widely patent without focal stenosis or occlusion. LUNGS/PLEURA: Lungs are clear. No pleural effusions. UPPER ABDOMEN: Limited survey of upper abdominal viscera is negative. CHEST WALL: No suspicious osseous abnormality. IMPRESSION: 1. No CT evidence for acute pu lmonary embolus or thoracic aortic dissection. 2. No acute pulm onary findings. SL: -H PAGE 1 Signed Report (CONTINUED) Name: FLEX PEREZ [facility] : 1975 Age/S: 42 / F [address] [place] [address] Unit #: [id number] Loc: [place] [address] Phys: Dwayne Ford DO Acct: [id number] Dis Date: Status: [facility] PHONE #: [phone] Exam Date: 07/20/20171702 FAX #: [phone] Reason: left arm numbness/ left arm cyanosis EXAMS: CPT CODE: [id number] CT ANGIO CHEST 62338 <Continued> at 1744 Reported and signed by: Yrn Carnes M.D. CC: Dwayne Ford DO Technologist:RT Edmund(R) CTDI: DLP: Trnscb Date/Time: 07/20/2017 (1744) [email or web address] Orig Print D/T: S: 07/20/2017 (1747) PAGE 2 Signed Report - CT HEAD/BRAIN W/O [id number] 17:15:00 Name: FLEX PEREZ [facility] : 1975 Age/S: 42 / F [address] [place] [address] Unit #: [id number] Loc: [place] [address] Phys: Brisa Ford DO Acct: [id number] Di s Date: Status: [facility] PHONE #: Exam Date: 07/20/20171702 FAX #: [phone] Reason: left arm numbness/ left arm cyanosis EXAMS: CPT CODE: [id number] CT HEAD/BRAIN W/O CONT 85565 CT HEAD NO CONTRAST HISTORY: Left arm numbness and cyanosis. COMPARISON: None 5 mm helical images are obtained in the axial plane of the brain from skull base to vertex, without the administration of IV contrast. FINDINGS: There is no mass, mass effect, hydrocephalus, or evidence for intracranial hemorrhage. There is no evidence for acute i nfarct at this time by noncontrast CT. There is no abnormal extra-axial f luid collection. The paranasal sinuses and mastoid air cells are clear. No skull fracture seen on the bone windows. IMPRESSION: No acute intracranial abnormality demonstrated. SL:01 at 2552 Reported and signed by: Andrew Mary M.D. CC: Dwayne Ford DO Technologist:RT Edmund(R) CTDI: DLP: Trnscb Date/Time: 07/20/2017 (3115) Adam Orig Print D/T: S: 07/20/2017 (3604) PAGE 1 Signed Report
--- OUTSIDE RECORDS SUMMARY | 2019-07-09 21:34 | XMS REPORT | Summary of Care ---
Author FLEX Allen M.D. Organization Unknown Address Unknown Phone Unavailable Care Team Providers Care Quality Head Name Role Phone MEGHAN BRYANT M.D. Unavailable Unavailable Unavailable Unavailable Functional Status Name Dates Details Functional status health issues are not documented Status: Name Dates Details Cognitive status health issues are not d ocumented Status: Problems Name Dates Details exam (V24.2, Z39.2) Status: Active Medications Name Dates Details No Reported Medications Active Allergies and Adverse Reactions Name Dates Details No Known Allergies (Allergy) Status: Act robin Past Medical History Name Dates Details History of Acute pneumothorax (512.89, J 93.83) Status: Resolved Procedures Procedure Dates Details History of Section Completed History of Hysterectomy supracervical Co mpleted Immunization Name Dates Details Immunizations not documented Social History Name Dates Details Tobacco smoking consumption unknown (finding) Vital Signs Date Test Result Details No Known Vitals to report Results Date Description Value Details Results not documented Plan of Care Name Dates Details Planned Observations Planned Goals not documented Interventions Provided Instructions* Patient Specific Education Given; Done: 11 Jun 2016 Discussion/Summary* 40 yo [id number] s/p 34 wk1d C-hyst on 06/01/16 for placenta accreta with GUILLE, small bowel serosal enterorrhaphy of mid-ileum by colorectal surgery. Total EBL 2200cc. * 1) postop; * doing well, small incisional opening packed today, f/u 1 week for wound recheck. packing supplies given. * no fevers, chills, nausea, or vomiting. * EPDS 0/30, good support * 2) PPBCM: s/p supracervical hyst * needs paps until 67 yo * Strict precautions to return to OB Triage if any fevers, chills, nausea, or vomiting, foul smelling discharge. no evidence of infection at this time. * F/u 1 week for wound recheck * Meghan Aiken MD. Instructions Name Dates Details Instructions not documented Encounters Appointment; OB/, POSPROVIDER Encounter Diagnosis: Problem not documented On: 11-Jun-2016 13:00
[2019-07-09] MEDS ORDERED: SODIUM CHLORIDE 0.9% 1000ML 1,000 ML IV STA (21:59)
[2019-07-09] MEDS: METOCLOPRAMIDE HCL 10 MG/2ML VIAL IV ONE (22:24)
[2019-07-09] MEDS: DIPHENHYDRAMINE HCL INJ 50 MG/ML VIAL IV ONE ×2 (22:24→22:25)
[2019-07-09 22:33] LABS: BASOPHILS % 0.2 % (0.0-1.0); EOSINOPHILS # (AUTO) 0.1 (0.0-0.4); EOSINOPHILS % 1.6 % (0.0-6.0); HEMOGLOBIN 12.8 g/dL (12.0-16.0); LYMPHOCYTES % 33.3 % (18.0-39.1); MEAN CORPUSCULAR HEMOGLOBIN 29.5 pg (28-32); MEAN CORPUSCULAR HGB CONC 33.7 g/dL (31-35); MEAN CORPUSCULAR VOLUME 87.6 fL (81-99); MONOCYTES # (AUTO) 0.6 (0.2-0.8); NEUTROPHILS # (AUTO) 3.4 (2.1-6.9); NEUTROPHILS % 54.6 % (38.7-80.0); PLATELET COUNT 160 x10e3/uL (140-360); RED BLOOD COUNT 4.34 x10e6/uL (3.6-5.1); RED CELL DISTRIBUTION WIDTH 12.8 % (11.7-14.4)
[2019-07-09 22:37] LABS: CLARITY,URINE CLOUDY (CLEAR); COLOR,URINE YELLOW (YELLOW); LEUKOCYTE ESTERASE ,URINE NEGATIVE (NEGATIVE); NITRITE,URINE NEGATIVE (NEGATIVE)
[2019-07-09 22:38] LABS: BILIRUBIN,URINE NEGATIVE (NEGATIVE); KETONES,URINE 1+ (NEGATIVE); PREGNANCY TEST, URINE NEGATIVE (NEGATIVE); PROTEIN,URINE DIPSTICK NEGATIVE (NEGATIVE); URINE UROBILINOGEN 0.2 mg/dL (0.2 - 1)
[2019-07-09 22:45] LABS: ALANINE AMINOTRANSFERASE 86 IU/L (0-55); ALBUMIN 3.7 g/dL (3.5-5.0); ALBUMIN/GLOBULIN RATIO 0.8 (0.8-2.0); ALKALINE PHOSPHATASE 129 IU/L (40-150); ANION GAP 13.6 mmol/L (8-16); BLOOD UREA NITROGEN 21 mg/dL (7-26); BUN/CREATININE RATIO 30 (6-25); CALCIUM 9.2 mg/dL (8.4-10.2); CARBON DIOXIDE 24 mmol/L (22-29); CHLORIDE 102 mmol/L (98-107); CREATININE, SERUM 0.69 mg/dL (0.57-1.11); EST GLOMERULAR FILTRATION RATE > 60 ML/MIN (60-); GLUCOSE 107 mg/dL (74-118); POTASSIUM 3.6 mmol/L (3.5-5.1); SODIUM 136 mmol/L (136-145)
[2019-07-09 22:58] LABS: BACTERIA,URINE MANY /HPF; EPITHELIAL CELLS,URINE MODERATE /LPF; MUCUS,URINE MANY (RARE)
--- NOTE | 2019-07-09 23:05 | Diagnostic Imaging Report ---
Exam: Head CT without contrast History: Pain in left side of head. Comparison studies: None Technique: Axial images were obtained from the skull base to the vertex. Coronal and sagittal images reconstructed from the axial data. Dose modulation, iterative reconstruction, and/or weight based adjustment of the mA/kV was utilized to reduce the radiation dose to as low as reasonably achievable. Radiation dose: Total DLP: 921.4 mGy*cm. Estimated effective dose: DLP x 0.015 Intravenous contrast: None Findings: Scalp: No abnormalities. Bones: No fractures, blastic or lytic lesions. Brain sulci: Appropriate for age. Ventricles: Normal in size and configuration. No hydrocephalus. Extra-axial spaces: No masses, no fluid collection. Parenchyma: No abnormal densities. No masses, acute hemorrhage, or acute or chronic vascular insults. Sellar/suprasellar region: No abnormalities. Craniocervical junction: Patent foramen magnum. No Chiari one malformation. IMPRESSION: No intracranial abnormalities. Signed by: Dr. Zbigniew Hernandez M.D. on 07/09/2019 11:02 PM
[2019-07-09 23:34] VITALS: BP 104/54
--- NOTE | 2019-07-09 23:42 | Emergency Department Note ---
History of Present Illnes History of Present Illness Chief Complaint: General Medicine Complaints History of Present Illness This is a 44 year old female arrived to the ED with complaints of "tinging in her veins". Pt states symptoms have been present intermittently for several months. Pt states she was worried about it being a sign of a seizure. Pt denies any fever, chest pain or SOB. Historian: Patient Arrival Mode: Car Resolution Expert Required: No Radiation: non-radiation Severity: mild Onset quality: gradual Duration (how long): month(s) Timing of current episode: intermittent Progression: waxing and waning Chronicity: recurrent Context: recent illness, recent surgery, recent immobilization Relieving factors: none Exacerbating factors: none Past Medical/Family History Physician Review I have reviewed the patient's past medical and family history. Any updates have been documented here. Past Medical History Recent Fever: No Clinical Suspicion of Infectio: No New/Unexplained Change in Ment: No Past Medical History: None Past Surgical History: Hysterectomy, T&A, Other Surgery: LYSIS OF ADHESIONS chest tube Social History Smoking Cessation: Never Smoker Counseling Performed: No Alcohol Use: None Any Illegal Drug Use: No TB Exposure/Symptoms: No Physically hurt or threatened: No Family History Family history of heart diseas: Yes Other Last Tetanus: OOD Any Pre-Existing Lines (PICC,: No Is patient up to date on immun: Yes Last Flu: utd Last Pneumovax: na Review of Systems Review of Systems Constitutional: no symptoms EENTM: no symptoms Cardiovascular: no symptoms Respiratory: no symptoms Gastrointestinal: no symptoms Genitourinary: no symptoms Musculoskeletal: no symptoms Neurological: tingling Psychological: no symptoms Endocrine: no symptoms Hematological/Lymphatic: no symptoms Review of other systems All other systems reviewed and negative. Physical Exam Related Data Allergies: Coded Allergies: latex (Verified Allergy, Unknown, 07/09/19) Triage Vital Signs Vital Signs Date Time Temp Pulse Resp B/P (MAP) Pulse Ox O2 Delivery O2 Flow Rate FiO2 07/09/19 21:46 98.6 107 20 133/70 100 Vital signs reviewed: Yes Physical Exam CONSTITUTIONAL Constitutional: well-developed, well-nourished HENT HENT: normocephalic, atraumatic, oropharynx clear/moist, nose normal HENT L/R: left ext ear normal, right ext ear normal EYES Eyes: PERRL, conjunctivae normal NECK Neck: ROM normal PULMONARY Pulmonary: effort normal, breath sounds normal CARDIOVASCULAR Cardiovascular: regular rhythm, heart sounds normal, capillary refill normal, normal rate GASTROINTESTINAL Abdominal: soft, nontender, bowel sounds normal GENITOURINARY Genitourinary: exam deferred SKIN Skin: warm, dry MUSCULOSKELETAL Musculoskeletal: ROM normal NEUROLOGICAL Neurological: alert, oriented x 3, no gross motor or sensory deficits PSYCHOLOGICAL Psychological: mood/affect normal, judgement normal Results Laboratory Result Diagram: 07/09/19214907/09/192149 Laboratory Laboratory Tests Test 07/09/19 21:50 White Blood Count 6.13 x10e3/uL (4.8-10.8) Red Blood Count 4.34 x10e6/uL (3.6-5.1) Hemoglobin 12.8 g/dL (12.0-16.0) Hematocrit 38.0 % (34.2-44.1) Mean Corpuscular Volume 87.6 fL (81-99) Mean Corpuscular Hemoglobin 29.5 pg (28-32) Mean Corpuscular Hemoglobin Concent 33.7 g/dL (31-35) Red Cell Distribution Width 12.8 % (11.7-14.4) Platelet Count 160 x10e3/uL (140-360) Neutrophils (%) (Auto) 54.6 % (38.7-80.0) Lymphocytes (%) (Auto) 33.3 % (18.0-39.1) Monocytes (%) (Auto) 10.0 % (4.4-11.3) Eosinophils (%) (Auto) 1.6 % (0.0-6.0) Basophils (%) (Auto) 0.2 % (0.0-1.0) Neutrophils # (Auto) 3.4 (2.1-6.9) Lymphocytes # (Auto) 2.0 (1.0-3.2) Monocytes # (Auto) 0.6 (0.2-0.8) Eosinophils # (Auto) 0.1 (0.0-0.4) Basophils # (Auto) 0.0 (0.0-0.1) Absolute Immature Granulocyte (auto 0.02 x10e3/uL (0-0.1) Urine Color Yellow (YELLOW) Urine Clarity Cloudy (CLEAR) Urine pH 6 (5 - 7) Urine Specific [place] >=1.030 (1.010-1.025) Urine Protein Negative (NEGATIVE) Urine Glucose (UA) Negative (NEGATIVE) Urine Ketones 1+ (NEGATIVE) Urine Blood Negative (NEGATIVE) Urine Nitrite Negative (NEGATIVE) Urine Bilirubin Negative (NEGATIVE) Urine Urobilinogen 0.2 mg/dL (0.2 - 1) Urine Leukocyte Esterase Negative (NEGATIVE) Urine RBC 6-10 /HPF (0-5) Urine WBC 6-10 /HPF (0-5) Urine Epithelial Cells Moderate /LPF (NONE) Urine Bacteria Many /HPF (NONE) Urine Mucus Many (RARE) Urine Test Negative (NEGATIVE) Sodium Level 136 mmol/L (136-145) Potassium Level 3.6 mmol/L (3.5-5.1) Chloride Level 102 mmol/L (98-107) Carbon Dioxide Level 24 mmol/L (22-29) Anion Gap 13.6 mmol/L (8-16) Blood Urea Nitrogen 21 mg/dL (7-26) Creatinine 0.69 mg/dL (0.57-1.11) Estimat Glomerular Filtration Rate > 60 ML/MIN (60-) BUN/Creatinine Ratio 30 (6-25) Glucose Level 107 mg/dL (74-118) Calcium Level 9.2 mg/dL (8.4-10.2) Total Bilirubin 0.5 mg/dL (0.2-1.2) Aspartate Amino Transf (AST/SGOT) 76 IU/L (5-34) Alanine Aminotransferase (ALT/SGPT) 86 IU/L (0-55) Alkaline Phosphatase 129 IU/L (40-150) Total Protein 8.1 g/dL (6.5-8.1) Albumin 3.7 g/dL (3.5-5.0) Globulin 4.4 g/dL (2.3-3.5) Albumin/Globulin Ratio 0.8 (0.8-2.0) Lab results reviewed: Yes Imaging Imaging results reviewed: Yes Impressions Parenchyma: No abnormal densities. No masses, acute hemorrhage, or acute or chronic vascular insults. Sellar/suprasellar region: No abnormalities. Craniocervical junction: Patent foramen magnum. No Chiari one malformation. IMPRESSION: No intracranial abnormalities. Critical Care Time Subsequent provider I assumed direction of critical care for this patient from another provider of my specialty. Assessment & Plan Assessment & Plan Final Impression: (1) Tingling of upper extremity Assessment & Plan R/O electrolyte abnormalities cbc, cmp CT Brain Depart Disposition: HOME, SELF-CARE Last Vital Signs Date Time Temp Pulse Resp B/P (MAP) Pulse Ox O2 Delivery O2 Flow Rate FiO2 07/09/19 21:49 93 18 118/71 100 07/09/19 21:46 98.6 Medications in the ED Sodium Chloride 1,000 ml @ 0 mls/hr Q0M STAT IV Last administered on 07/09/19at 22:14; Admin Dose 999 MLS/HR; Start 07/09/19 at 21:59; Stop 07/09/19 at 22:00; Status DC Metoclopramide HCl 10 mg ONCE ONCE IV ; Start 07/09/19 at 22:00; Stop 07/09/19 at 22:03; Status DC Diphenhydramine HCl 25 mg NOW ONCE IV ; Start 07/09/19 at 22:00; Stop 07/09/19 at 22:03; Status DC ARTHUR GIBSON, July 09, 2019 23:42
== END 2019-07-09 23:39 | disposition home or self-care (01) ==
LOC: ER 21:30
DX: R20.2 Paresthesia of skin (principal)
CPT/HCPCS: 36415; 70450; 80053; 81001; 81025; 85025; 99284; J7030

== ENCOUNTER 2019-07-12 21:28 | Emergency (ER) | payer SELFPAY ==
[~2019-07-12] VITALS: Ht 162.6 cm; Wt 112.5 kg
--- OUTSIDE RECORDS SUMMARY | 2019-07-12 21:31 | XMS REPORT ---
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 Name Role Phone NO, PCP PCP Unavailable Jovana GIBSON Attphys Unavailable Arnie HORTON, Glenn Najera Attphys [phone] SUZANNE INGRAM Attphys Unavailable OB/MD, POSPROVIDER Attphys Unavailable Payers Payer Name Policy Type Policy Number Effective Date Expiration Date S ource Problems Condition Name Condition Details Condition Category Status Onset Date Resolution Date Last Treatment Date Treating Clinician Comments Source History of Acute pneumothorax History of Acute pneumothorax Problem Resolved [facility] xa Physicians exam exam Problem Active [facility] Physicians Problem Condition Active [facility] Allergies, Adverse Reactions, Alerts Allergy Name Allergy Type Status Severity Reaction(s) Onset Date Inacti ve Date Treating Clinician Comments Source Latex Allergy to substance Active 2019-07-09 00:00:00 [facility] Latex Propensity to adverse reactions to drug Active Swelling 2019-02-28 00:00:00 [facility] latex DA Active [place] 2018-08-22 00:00:00 [facility] latex DA Active U 2017-11-13 00:00:00 [facility] latex DA Active U 2017-11-01 00:00:00 [facility] latex DA Active [place] 2017-05-13 00:00:00 [facility] No Known Allergies DA Active U 2016-12-25 00:00:00 [facility] Social History Social Habit Start Date Stop Date Quantity Comments Source History SDOH Alcohol Std Drinks [place] [facility] History SDOH Alcohol Binge [place] [facility] Sex Assigned At Kelly [facility] Alcohol intake 2019-02-28 00:00:00 2019-02-28 00:00:00 Lifetime non-drinker (finding) [facility] History SDOH Alcohol Frequency 2019-02-28 00:00:00 2019-02-28 00:00:0 0 1 [facility] Smoking Status Start Date Stop Date Source Never smoker [facility] Medications This patient has no known medications. Vital Signs Vital Name Observation Time Observation Value Comments Source Weight 2019-07-09 21:46:00 248 [lb_av] [facility] BMI (Body Mass Index) 2019-07-09 21:46:00 42.6 kg/m2 [facility] Systolic blood pressure 2019-02-28 07:50:00 94 mm[facility]Hg[facility] Di[facility] blood pressure 2019-02-28 07:50:00 53 mm[Hg] [place] [facility] Heart rate 2019-02-28 07:50:00 70 /min [place] [facility] Respiratory rate 2019-02-28 07:50:00 17 /min Rema lopez [facility] Oxygen saturation in Arterial blood by Pulse oximetry 02-28 07:50:00 99 /min [place] [facility] Body temperature 2019-02-28 05:10:00 36.94 [place] [facility] Body height 2019-02-28 05:10:00 162.6 cm [place] [facility] Body weight 2019-02-28 05:10:00 113.399 kg [place] [facility] BMI 2019-02-28 05:10:00 42.91 kg/m2 [facility] Procedures Procedure Date / Time Performed Performing Clinician [facility] e Computed tomography of brain without radiopaque contrast 2019-06 00:00:00 [facility] XR CHEST 2 VW 2019-02-28 07:22:06 Arnie, Osmany Butler on [facility] CT HEAD WO CONTRAST 2019-02-28 06:57:22 [place]Osmany [place] [facility] TROPONIN 2019-02-28 06:47:00 Arnie, Osmany [facility] URINE CULTURE 2019-02-28 05:40:00 Jarret Cabrera ethodist HC COMPLETE BLD COUNT W/AUTO DIFF 2019-02-28 05:40:00 Jarret Cabrera COMPREHENSIVE METABOLIC PANEL 2019-02-28 05:40:00 Garcia ek tSeve De La Garza URINALYSIS SCREEN AND MICROSCOPY, WITH REFLEX TO CULTURE 05:40:00 Jarret Cabrera HCG QUALITATIVE, URINE SCREEN 2019-02-28 05:40:00 [place] ESTIMATED GFR 2019-02-28 05:40:00 Jarret Cabrera ethodist X-ray of chest, two views 2019-02-11 00:00:00 SUZANNE INGRAM CH I [facility] History of Section [facility] Physicians History of Hysterectomy supracervical [facility] Plan of Care Planned Activity Planned Date Details Comments Source Future Scheduled Test 2019-09-12 00:00:00 INFLUENZA VACCINE [code = INFLUENZA VACCINE] Devan De La aGrza Future Scheduled Test 1998 00:00:00 Screening for paul gnant neoplasm of cervix (procedure) [code = 474014738] Devan Fried t Instructions Headache [facility] Encounters Start Date/Time End Date/Time Encounter Type Admission Type Attendi [facility] Care Department Encounter ID Source 2019-02-28 00:00:00 2019-02-28 00:00:00 Emergency ARNIE OSMANY [place] 064 [id number] Devan De La Garza 2019-02-11 21:39:00 2019-02-11 21:39:00 Emergency E MHSE MHSE [id number] MHSE 2019-02-11 09:09:00 2019-02-11 09:09:00 Emergency E MHSE MHSE [id number] MHSE 2019-02-11 02:03:00 2019-02-11 05:20:00 Departed Emergency Room [address] [id number] [facility] 2019-02-05 14:36:00 2019-02-05 17:14:[address] [id number] [facility] 2016-06-11 13:00:00 2016-06-11 13:00:00 Appointment; OB/MD, POSPROV IDER OB/MD, POSPROVIDER [facility] [id number] [facility] Results Test Description Test Time Test Comments Results Result Comments Source CT BRAIN WO 2019-07-09 22:55:00 [facility] [address] [address] Patient Name: FLEX PEREZ MR #: [id number] : 1975 Age/Sex: 44/F Req #: [id number] Adm Physician: Ordered by: ARTHUR GIBSON DO Report #: [id number] Location: ER Room/Bed: Procedure: [id number] CT/CT BRAIN WO Exam Date: 07/09/19 Exam Time: 2240 REPORT STATUS: Signed Exam: Head CT without contrast History: Pain in left side of head. Comparison studies: None Technique: Axial images were obtained from the skull base to the vertex. Coronal and sagittal images reconstructed from the axial data. Dose modulation, iterative reconstruction, and/or weight based adjustment of the mA/kV was utilized to reduce the radiation dose to as low as reasonably achievable. Radiation dose: Total DLP: 921.4 mGy*cm. Estimated effective dose: DLP x 0.015 Intravenous contrast: None Findings: Scalp: No abnormalities. Bones: No fractures, blastic or lytic lesions. Brain sulci: Appropriate for age. Ve ntricles: Normal in size and configuration. No hydrocephalus. Extra-axial spaces: No masses, no fluid collection. Parenchyma: No abnormal densities. No masses, acute hemorrhage, or acute or chronic vascular insults. Sellar/suprasellar region: No abnormalities. Craniocervical junction: Patent foramen magnum. No Chiari one malformation. IMPRESSION: No intracranial abnormalities. Signed by: Dr. Hugh Srinivasan M.D. on 07/09/2019 11:02 PM Dictated By: HUGH SRINIVASAN MD 01 Transcribed By: SUSY on 07/09/192301 COPY TO: ARTHUR GIBSON DO Blood leukocytes automated count (number/volume) 2019-07-09 21:50:00 Test Item White Blood Count (test code = 6690-2) 6.13 4.8-10.8 [facility] count (number/volume)2019-07-09 21:50:00* Test Item Value Reference Range Interpretation Comments Red Blood Count (test code = 789-8) 4.34 3.6-5.1 [facility] hemoglobin measurement (moles/volume)2019-07-09 21:50:00* Test Item Value Reference Range Interpretation Comments Hemoglobin (test code = 73013-6) 12.8 12.0-16.0 [facility] CenterAutomated blood hematocrit (volume fraction)2019-07-09 21:50:00* Test Item Value Reference Range Interpretation Comments Hematocrit (test code = 4544-3) 38.0 34.2-44.1 [facility] CenterAutomated erythrocyte mean corpuscular pjpvla6527-70-47 21:50:00* Test Item Value Reference Range Interpretation Comments Mean Corpuscular Volume (test code = 787-2) 87.6 81-99 [facility] CenterAutom[facility] erythrocyte mean corpuscular hemoglobin (mass per erythrocyte)2019-07-09 21:50:00* Test Item Value Reference Range Interpretation Comments Mean Corpuscular Hemoglobin (test code = 785-6) 29.5 28-32 [facility] CenterAutom[facility] erythrocyte mean corpuscular hemoglobin concentration measurement (mass/volume)2019-07-09 21:50:00* Test Item Value Reference Range Interpretation Comments Mean Corpuscular Hemoglobin Concent (test code = 786-4) 33.7 31-35 [facility] CenterRDW PciZr-Gyx7148-94-28 21:50:00* Test Item Value Reference Range Interpretation Comments Red Cell Distribution Width (test code = 68414-4) 12.8 11.7 -14.4 [facility] CenterAutomated blood platelet count (count/volume)2019-07-09 21:50:00* Test Item Value Reference Range Interpretation Comments Platelet Count (test code = 777-3) 160 140-360 [facility] CenterAutom[facility] blood segmented neutrophil count as percentage of total wypujutudr9518-27-75 21:50:00* Test Item Value Reference Range Interpretation Comments Neutrophils (%) (Auto) (test code = 99464-9) 54.6 38.7-80.0 [facility] CenterAutomated blood lymphocyte count as percentage ot total rdbfcueetk5275-07-79 21:50:00* Test Item Value Reference Range Interpretation Comments Lymphocytes (%) (Auto) (test code = 736-9) 33.3 18.0-39.1 [facility] CenterAutomated blood monocyte count as percentage of total dbveflijmc7240-90-17 21:50:00* Test Item Value Reference Range Interpretation Comments Monocytes (%) (Auto) (test code = 5905-5) 10.0 4.4-11.3 [facility] CenterAutom[facility] blood eosinophil count as percentage of total zwecllchlh9886-72-20 21:50:00* Test Item Value Reference Range Interpretation Comments Eosinophils (%) (Auto) (test code = 713-8) 1.6 0.0-6.0 [facility] CenterAutomated blood basophil count as percentage of total bunaeyqgqe6509-61-03 21:50:00* Test Item Value Reference Range Interpretation Comments Basophils (%) (Auto) (test code = 706-2) 0.2 0.0-1.0 [facility] CenterFluoroscopic procedure less than one hour tuobpaba2707-54-35 21:50:00* Test Item Value Reference Range Interpretation Comments IM GRANULOCYTES % (test code = IM GRANULOCYTES %) 0.3 0.0- 1.0 [facility] CenterAutom[facility] blood neutrophil count 2019-07-09 21:50:00* Test Item Value Reference Range Interpretation Comments Neutrophils # (Auto) (test code = 751-8) 3.4 2.1-6.9 [facility] CenterBlood lymphocytes count (number/volume) 2019-07-09 21:50:00* Test Item Value Reference Range Interpretation Comments Lymphocytes # (Auto) (test code = 81544-7) 2.0 1.0-3.2 [facility] CenterBlood monocytes automated count (number/volume)2019-07-09 21:50:00* Test Item Value Reference Range Interpretation Comments Monocytes # (Auto) (test code = 742-7) 0.6 0.2-0.8 [facility] CenterAutomated blood eosinophil count 2019-07-09 21:50:00* Test Item Value Reference Range Interpretation Comments Eosinophils # (Auto) (test code = 711-2) 0.1 0.0-0.4 [facility] CenterAutomated blood basophil count (count/volume)2019-07-09 21:50:00* Test Item Value Reference Range Interpretation Comments Basophils # (Auto) (test code = 704-7) 0.0 0.0-0.1 [facility] CenterFluoroscopic procedure less than one hour daomrxhn2335-89-56 21:50:00* Test Item Value Reference Range Interpretation Comments Absolute Immature Granulocyte (auto (molly t code = Absolute Immature Granulocyte (auto) 0.02 0-0.1 [facility] CenterUrine color dpuqcuwjsynui7973-05-68 21:50:00* Test Item Value Reference Range Interpretation Comments Urine Color (test code = 5778-6) YELLOW YELLOW [facility] CenterUrine msyqbqu2356-07-27 21:50:00* Test Item Value Reference Range Interpretation Comments Urine Clarity (test code = 99942-3) CLOUDY CLEAR [facility] gravity of Urine by Test strip 2019-07-09 21:50:00* Test Item Value Reference Range Interpretation Comments Urine Specific [place] (test code = 5811-5) >=1.030 1.010-1.02 5 [facility] CenterUrine pH measurement by automated test xtsad9783-75-83 21:50:00* Test Item Value Reference Range Interpretation Comments Urine pH (test code = 19541-3) 6 5-7 [facility] CenterUrine leukocyte esterase detection by bguebcfz0185-04-54 21:50:00* Test Item Value Reference Range Interpretation Comments Urine Leukocyte Esterase (test code = 5799-2) NEGATIVE NEGATIVE [facility] CenterUrine nitrite tzuzdiplk0049-72-11 21:50:00* Test Item Value Reference Range Interpretation Comments Urine Nitrite (test code = 19328-8) NEGATIVE NEGATIVE [facility] CenterUrine protein measurement by test strip (mass/volume)2019-07-09 21:50:00* Test Item Value Reference Range Interpretation Comments Urine Protein (test code = 5804-0) NEGATIVE NEGATIVE [facility] CenterUrine glucose shybawwzo3601-95-34 21:50:00* Test Item Value Reference Range Interpretation Comments Urine Glucose (UA) (test code = 2349-9) NEGATIVE NEGATIVE [facility] CenterUrine ketones detection by automated test mvclo1566-84-10 21:50:00* Test Item Value Reference Range Interpretation Comments Urine Ketones (test code = 50790-7) 1+ NEGATIVE [facility] CenterUrine urobilinogen measurement by test strip (mass/volume)2019-07-09 21:50:00* Test Item Value Reference Range Interpretation Comments Urine Urobilinogen (test code = 00287-2) 0.2 0.2-1 [facility] CenterUrine total bilirubin measurement (mass/volume)2019-07-09 21:50:00* Test Item Value Reference Range Interpretation Comments Urine Bilirubin (test code = 1977-07) NEGATIVE NEGATIVE [facility] CenterUrine erythrocytes iziotrzpm4098-43-00 21:50:00* Test Item Value Reference Range Interpretation Comments Urine Blood (test code = 80552-9) NEGATIVE NEGATIVE [facility] CenterAutomated urine sediment leukocyte count by microscopy (number/high power field)2019-07-09 21:50:00* Test Item Value Reference Range Interpretation Comments Urine WBC (test code = 5821-4) 6-10 0-5 [facility] CenterErythrocytes detection in urine sediment by light uaidzgyjnu1533-72-05 21:50:00* Test Item Value Reference Range Interpretation Comments Urine RBC (test code = 85828-9) 6-10 0-5 [facility] CenterBacteria detection in urine sediment by light uswvpdrgoz0077-26-15 21:50:00* Test Item Value Reference Range Interpretation Comments Urine Bacteria (test code = 99043-6) MANY NONE [facility] CenterEpithelial cells detection in urine sediment by light fyerghgfte1669-45-07 21:50:00* Test Item Value Reference Range Interpretation Comments Urine Epithelial Cells (test code = 53577-5) MODERATE NONE [facility] CenterMucus detection in urine sediment by light bypescnkje5170-12-94 21:50:00* Test Item Value Reference Range Interpretation Comments Urine Mucus (test code = 8247-9) MANY RARE [facility] CenterUrine human chorionic gonadotropin (hCG) lwctwnywv2653-86-05 21:50:00* Test Item Value Reference Range Interpretation Comments Urine Test (test code = 2106-3) NEGATIVE NEGATIVE [facility] Centererum or plasma sodium measurement (moles/volume)2019-07-09 21:50:00* Test Item Value Reference Range Interpretation Comments Sodium Level (test code = 2951-2) 136 136-145 [facility] Centererum or plasma potassium measurement (moles/volume)2019-07-09 21:50:00* Test Item Value Reference Range Interpretation Comments Potassium Level (test code = 2823-3) 3.6 3.5-5.1 [facility] Centererum or plasma chloride measurement (moles/volume)2019-07-09 21:50:00* Test Item Value Reference Range Interpretation Comments Chloride Level (test code = 2075-0) 102 98-107 [facility] Centererum or plasma carbon dioxide, total measurement (moles/volume)2019-07-09 21:50:00* Test Item Value Reference Range Interpretation Comments Carbon Dioxide Level (test code = 2028-9) 24 22-29 [facility] Centererum or plasma anion jxb3483-46-74 21:50:00* Test Item Value Reference Range Interpretation Comments Anion Gap (test code = 20482-9) 13.6 8-16 [facility] Centererum or plasma urea nitrogen measurement (mass/volume)2019-07-09 21:50:00* Test Item Value Reference Range Interpretation Comments Blood Urea Nitrogen (test code = 3094-0) 21 7-26 [facility] Centererum or plasma creatinine measurement (mass/volume)2019-07-09 21:50:00* Test Item Value Reference Range Interpretation Comments Creatinine (test code = 2160-0) 0.69 0.57-1.11 [facility] Centererum or plasma urea nitrogen/creatinine mass ijplj0495-13-52 21:50:00* Test Item Value Reference Range Interpretation Comments BUN/Creatinine Ratio (test code = 3097-3) 30 6-25 [facility] CenterEstimated glomerular filtration rate (GFR) zhazwlexfggvv8717-61-83 21:50:00* Test Item Value Reference Range Interpretation Comments Estimat Glomerular Filtration Rate (test code = 296868881) > 60 >60 Ranges were taken from the National Kidney Disease Education Program and the [facility] Kidney Foundation literature.Reference ranges:60 or greater: Ilsemm55-37 ( for 3 consecutive months): Chronic kidney disease 15 or less: Kidney failureBaptist Medical CenterGlucose vpzbgmrfwar8362-33-72 21:50:00* Test Item Value Reference Range Interpretation Comments Glucose Level (test code = NYY7244) 107 74-118 [facility] Centererum or plasma calcium measurement (mass/volume)2019-07-09 21:50:00* Test Item Value Reference Range Interpretation Comments Calcium Level (test code = 92703-1) 9.2 8.4-10.2 [facility] Centererum or plasma total bilirubin measurement (mass/volume)2019-07-09 21:50:00* Test Item Value Reference Range Interpretation Comments Total Bilirubin (test code = 1975-2) 0.5 0.2-1.2 [facility] CenterFluoroscopic procedure less than one hour ufrdjdpq7716-98-05 21:50:00* Test Item Value Reference Range Interpretation Comments Aspartate Amino Transf (AST/SGOT) (test code = Aspartate Amino Transf (AST/SGOT)) 76 5-34 [facility] Centererum or plasma alanine aminotransferase measurement (enzymatic activity/volume)2019-07-09 21:50:00* Test Item Value Reference Range Interpretation Comments Alanine Aminotransferase (ALT/SGPT) (test code = 1742-6) 86 0-55 [facility] Centererum or plasma protein measurement (mass/volume)2019-07-09 21:50:00* Test Item Value Reference Range Interpretation Comments Total Protein (test code = 2885-2) 8.1 6.5-8.1 [facility] Centererum or plasma albumin measurement (mass/volume)2019-07-09 21:50:00* Test Item Value Reference Range Interpretation Comments Albumin (test code = 1751-7) 3.7 3.5-5.0 [facility] CenterPlasma globulin measurement (mass/volume) 2019-07-09 21:50:00* Test Item Value Reference Range Interpretation Comments Globulin (test code = 87791-7) 4.4 2.3-3.5 [facility] Centererum or plasma albumin/globulin mass bfwga4185-99-93 21:50:00* Test Item Value Reference Range Interpretation Comments Albumin/Globulin Ratio (test code = 1759-0) 0.8 0.8-2.0 [facility] Centererum or plasma alkaline phosphatase measurement (enzymatic activity/volume)2019-07-09 21:50:00* Test Item Value Reference Range Interpretation Comments Alkaline Phosphatase (test code = 6768-6) 129 40-150 [facility] CenterTroponin2020-01-18 07:24:53* Test Item Value Reference Range Interpretation Comments Troponin (test code = 74712-7) <0.006 0-0.04 In patients suspected of having [...] OR decreased by less than 0.020 ng/mL [facility]XR Chest 2 Bu8780-81-09 07:22:56Hm Interface, Radiology Results 02/28/2019 7:26 AM CSTEXAMINATION: XR CHEST 2 VWCLINICAL HISTORY: 43 years Female chest pain STJHCOMPARISON: NoneIMPRESSION:1.Heart size and central vasculature are normal. 2.The lungs are clear.3.Bones are intact.[facility]-MF47TJFZWjgllry MethodistCT Head Wo Avmksgge2197-57-04 06:59:37Hm Interface, Radiology Results 02/28/2019 7:02 AM [...] ION:1. No CT evidence of acute intracranial abnormality.[id number] MethodistComprehensive metabolic lvupv0433-94-65 06:29:11* Test Item Value Reference Range Interpretation Comments Sodium (test code = 2951-2) 137 135- 148 mEq/L Potassium (test code = 2823-3) 4.2 3.5- 5.0 mEq/L Chloride (test code = 2075-0) 102 98- 112 mEq/L CO2 (test code = 8-9) 24 24- 31 mEq/L Anion gap (test code = 07777-0) 11@ANIO 7- 15 mEq/L BUN (test code = 3094-0) 15 mg/dL 6-20 Creatinine (test code = 2160-0) 0.70 mg/dL 0.5-0.9 Glucose (test code = 2345-7) 109 mg/dL 65-99 H Calcium (test code = 29526-3) 9.8 mg/dL 8.3-10.2 Protein (test code = 2885-2) 8.4 g/dL 6.3-8.3 H Kuyvmol4289.6-7.0 g/dL1 yioa4900.4-7.6 g/dL7 months-6onvw083.1-7.3 g/dL1-2 zizqi886.6-7.5 g/dL>3 ykwnm223.0-8.0 g/jE60-1345315.3-8.3 g/dL Albumin (test code = 1751-7) 4.4 g/dL 3.5-5 A/G ratio (test code = 1759-0) 1.1 0.7-3.8 Alkaline phosphatase (test code = 6768-6) 99 U/L 35-104 AST (test code = 1920-8) 67 U/L 10-35 H ALT (test code = 1742-6) 71 U/L 5-50 H Total bilirubin (test code = 1975-2) 0.7 mg/dL 0-1.2 Lab Interpretation (test code = 03517-6) Abnormal Devan MethodshawnEstimated IML0722-37-04 06:29:11* Test Item Value Reference Range Interpretation Comments Estimated GFR (test code = 5488) >=90 mL/min/1.73 m2 Catergory Units InterpretationG1 >=90 Normal or highG2 60-89 Mildly ncqiutxliZ5s 45-59 Mildly to moderately hviyblbjjP0c 30-44 Moderately to severely decreasedG4 15-29 Severely decreasedG5 <15 Kidney failureThe eGFR was calculated using the Chronic Kidney Disease Epidemiology Collaboration (CKD-EPI) equation. Interpretation is based on recommendations of the National Kidney Foundation-Kidney Disease Outcomes Quality Initiative (NKF-KDOQI) published in 2014. [facility] OlmanisthCG qualitative, urine ltlbzc0654-47-21 06:08:51* Test Item Value Reference Range Interpretation Comments hCG qualitative, urine (test code = 2106-3) Negative Negative The manufacturers stated sensitivity of HcG test for serum is >/= 10 mIU/ml and urine is >/= 20mIU/ml. [place] OlmanistUrine rrogirj8709-89-50 06:07:51* Test Item Value Reference Range Interpretation Comments Urine culture (test code = 0258172) SEE COMMENT Bacteriuria screen negative. [place] MethodistUrinalysis screen and microscopy, with reflex to culture 2019-02-28 06:07:49* Test Item Value Reference Range Interpretation Comments Specimen site (test code = 1028504) Catheterized Color, UA (test code = 5778-6) Yellow Appearance, UA (test code = 5767-9) Slightly-Cloudy Specific gravity, UA (test code = 5811-5) 1.021 1.001-1.035 pH, UA (test code = 5803-2) 6.0 5.0-8.5 Protein, UA (test code = 06349-9) Negative Negative Glucose, UA (test code = 81962-9) Negative Negative Ketones, UA (test code = 2514-8) Trace Negative A Bilirubin, UA (test code = 5770-3) Negative Negative Blood, UA (test code = 5794-3) Negative Negative Nitrite, UA (test code = 5802-4) Negative Negative Urobilinogen, UA (test code = 68370-0) Negative <2.0 Leukocyte esterase, UA (test code = 5799-2) Negative Negative Epithelial cells, UA (test code = 5787-7) None seen Few /HPF WBC, UA (test code = 5821-4) None seen 0- 4 /HPF RBC, UA (test code = 88853-9) None seen 0- 5 /HPF Bacteria, UA (test code = 93717-0) None seen None seen Yeast, UA (test code = 01312-8) None seen Yeast with pseudohyphae, UA (test code = 98002-4) None seen Lab Interpretation (test code = 04443-4) Abnormal [place] MethodistCBC with platelet and ohphepehtjlk7447-94-03 06:01:38* Test Item Value Reference Range Interpretation Comments WBC (test code = 02217-8) 4.41 4.50- 11.00 k/uL L RBC (test code = 15504-7) 4.25 m/uL 4.2-5.5 HGB (test code = 718-7) 12.8 g/dL 12-16 HCT (test code = 4544-3) 38.0 % 37-47 MCV (test code = 787-2) 89.4 fL 82-100 MCH (test code = 785-6) 30.1 pg 27-34 MCHC (test code = 786-4) 33.7 g/dL 31-37 RDW - SD (test code = 31796-9) 41.7 fL 37-55 MPV (test code = 30353-0) 10.9 fL 8.8-13.2 Platelet count (test code = 83402-6) 155 150- 400 k/uL Nucleated RBC (test code = 18705-0) 0.00 /100 WBC Neutrophils (test code = 28749-4) 55.3 % 39-69 Lymphocytes (test code = 50164-2) 33.8 % 25-45 Monocytes (test code = 34742-7) 10.0 % 0-10 Eosinophils (test code = 43530-5) 0.7 % 0-5 Basophils (test code = 32967-5) 0.2 % 0-1 Lab Interpretation (test code = 65111-3) Abnormal [facility]- US ABDOMEN [id number] 05:14:00 Name: FLEX PEREZ [facility] : 1975 Age/S: 43 / F [address] [place] [address] Unit #: [id number] Loc: [place] [address] Phys: Cindi Steele NP Acct: [id number] Dis Date: Status: REG ER PHONE #: [phone] Exam Date: 02/27/2019439 FAX #: [phone] Reason: ruq pain EXAMS: CPT CODE: [id number] US ABDOMEN LTD 57760 EXAM: US, US ABDOMEN LTD: 02/27/2019, 0431 [...] by: Ranjan Mccoy M.D. CC: Cindi Steele COAT REPAIR INSPECTOR; Juan Lima MD Technolog ist: Gauri Steele RDMS(A) Trnscb Date/Time: (513) EdelmiraJS38 Orig Print D/T: S: 02/27/2019 ( 517) Probe: PAGE 1 Signed Repo rt BASIC METABOLIC [id number] 03:36:00* Test Item Value Reference Range Interpretation [...] CA) 9.8 mg/dL 8.0-10.5 N HEPATIC FUNCTION [id number] 03:36:00* Test Item Value Reference Range Interpretation [...] code = ALKP) 119 IUnit/L 20-125 N [id number] 03:36:00* Test Item Value Reference Range Interpretation Comments LIPASE (test code = LIP) 124 IUnit/L 73-393 N CBC W/AUTO [id number] 03:21:00* Test Item Value Reference Range Interpretation [...] REQUIRED (test code = MDIFF) NO TROPONIN-I [id number] 03:18:00* Test Item Value Reference Range Interpretation Comments TROPONIN-I RAPID (test code = TROPIRAP) 0.00 ng/mL 0.00-0.08 N Performed by 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 Rather, the patient sclinical presentation (history, physical exam) and ECGshould be used in conjunction with troponin in thediagnostic evaluation of suspected myocardial infarction. Aserial sampling protocol is recommended to facilitate the identification of temporal changes in troponin levels characteristic of [place]. - XR CHEST 2 [id number] 02:47:00 FAX: Cindi Steele NP [phone] [place]: St: PRE Name: FLEX MCCORMICK [facility] : [birth year] Age/S: 43/F [address] [place] [address] Unit #: [id number] Loc: [place] [address] Phys: Cindi Steele NP Acct: [id number] Dis Date: Status: PRE ER PHONE #: [phone] Exam Date: 02/27/2019 0241 FAX #: [phone] Reason: cp EXAMS: CPT CODE: [id number] XR CHEST 2 V 95084 EXAM: CR, XR chest 2 views: 2019, 0235 hours HISTORY: cp TECHNIQUE: 2018 COMPARISON: None available. FINDINGS: Trachea is in midline. Heart is normal in size. Pulmonary vascularity is not khadijah ested. No airspace consolidation, pneumothorax or pleural effusion is see n. Osseous structures are stable. IMPRESSION: No acute ca rdiopulmonary disease seen. SL:[JSYED-H] Perico mayers Signed by Radhika Mccoy on 02/27/2019 at 0247 Re ported and signed by: Ranjan Mccoy M.D. CC: Cindi Steele NP Technologist: Art Ambrosio RT(R) Trnscrd Date/Time/By: 02/27/2019 (0247) : By: Umair GonzalesJS38 Orig Print D/T: S: 02/27/2019 (025) PAG E 1 Signed Report Creatine Kinase [id number] 05:40:00* Test Item Value Reference Range Interpretation Comments Creatine Kinase MB (test code = 79707-6) 0.90 0-5.0 [facility]rop[facility] [id number] 05:40:00* Test Item Value Reference Range Interpretation Comments Troponin I (test code = QUM2443) 0.008 0-0.300 [facility] Centerodium Reyoe5391-85-08 05:07:00* Test Item Value Reference Range Interpretation Comments Sodium Level (test code = 2951-2) 135 136-145 L [facility] CenterPotassium Edlyu4428-68-66 05:07:00* Test Item Value Reference Range Interpretation Comments Potassium Level (test code = 2823-3) 3.8 3.5-5.1 [facility] CenterChloride Edled5018-54-13 05:07:00* Test Item Value Reference Range Interpretation Comments Chloride Level (test code = 2075-0) 101 98-107 [facility] CenterCarbon Dioxide Xcrlr9940-82-46 05:07:00* Test Item Value Reference Range Interpretation Comments Carbon Dioxide Level (test code = 2028-9) 26 22-29 [facility] CenterAnion Gzk1565-63-19 05:07:00* Test Item Value Reference Range Interpretation Comments Anion Gap (test code = 43191-1) 11.8 8-16 [facility] CenterBlood Urea Ueawbdpi9835-30-34 05:07:00* Test Item Value Reference Range Interpretation Comments Blood Urea Nitrogen (test code = 3094-0) 12 7-26 [facility] CenterCreatinine2020-01-01 05:07:00* Test Item Value Reference Range Interpretation Comments Creatinine (test code = 2160-0) 0.68 0.57-1.11 [facility] CenterBUN/Creatinine Kdqoo9401-70-16 05:07:00* Test Item Value Reference Range Interpretation Comments BUN/Creatinine Ratio (test code = 3097-3) 18 6-25 [facility] CenterEstimat Glomerular Filtration Rate 2019-02-11 05:07:00* Test Item Value Reference Range Interpretation Comments Estimat Glomerular Filtration Rate (test code = 137285949) > 60 >60 Ranges were taken from the National Kidney Disease Education Program and the [facility] literature.Reference ranges:60 or greater: Zcdtva82-91 ( for 3 consecutive months): Chronic kidney disease 15 or less: Kidney failureBaptist Medical CenterGlucose Yusst0104-08-41 05:07:00* Test Item Value Reference Range Interpretation Comments Glucose Level (test code = AUR7286) 107 74-118 [facility] CenterCalcium Rpyog6265-54-49 05:07:00* Test Item Value Reference Range Interpretation Comments Calcium Level (test code = 23953-4) 8.5 8.4-10.2 [facility] CenterTotal Ywdhgcphc9095-48-79 05:07:00* Test Item Value Reference Range Interpretation Comments Total Bilirubin (test code = 1975-2) 0.6 0.2-1.2 [facility] CenterAspartate Amino Transf (AST/SGOT) 2019-02-11 05:07:00* Test Item Value Reference Range Interpretation Comments Aspartate Amino Transf (AST/SGOT) (test code = Aspartate Amino Transf (AST/SGOT)) 56 5-34 H [facility] CenterAlanine Aminotransferase (ALT/SGPT) 2019-02-11 05:07:00* Test Item Value Reference Range Interpretation Comments Alanine Aminotransferase (ALT/SGPT) (test code = 1742-6) 62 0-55 H [facility] CenterTotal Ypmnzcu1589-74-56 05:07:00* Test Item Value Reference Range Interpretation Comments Total Protein (test code = 2885-2) 7.6 6.5-8.1 [facility] CenterAlbumin2020-01-01 05:07:00* Test Item Value Reference Range Interpretation Comments Albumin (test code = 1751-7) 3.4 3.5-5.0 L [facility] CenterGlobulin2020-01-01 05:07:00* Test Item Value Reference Range Interpretation Comments Globulin (test code = 04052-3) 4.2 2.3-3.5 H [facility] CenterAlbumin/Globulin Zhzys9553-48-59 05:07:00 * Test Item Value Reference Range Interpretation Comments Albumin/Globulin Ratio (test code = 1759-0) 0.8 0.8-2.0 [facility] CenterAlkaline Nseebqdqcyu9252-85-04 05:07:00* Test Item Value Reference Range Interpretation Comments Alkaline Phosphatase (test code = 6768-6) 104 40-150 [facility] CenterCreatine Spvepe3287-81-90 05:07:00* Test Item Value Reference Range Interpretation Comments Creatine Kinase (test code = 2157-6) 46 29-168 [facility] CenterLipase2020-01-01 05:07:00* Test Item Value Reference Range Interpretation Comments Lipase (test code = 3040-3) 20 8-78 [facility] CenterD-Dimer Quantitative (PE/DVT)2019-02-11 05:05:00* Test Item Value Reference Range Interpretation Comments D-Dimer Quantitative (PE/DVT) (test code = 96754-8) < 100 0- 400 As with all in vitro diagnostic tests, the test results should be interpreted by the physician in conjunction with clinical findings and other test results.Test results are reported in NEW D-dimer units(ug/mLFEU).[facility] CenterWhite Blood Xeiyc0899-74-72 04:47:00* Test Item Value Reference Range Interpretation Comments White Blood Count (test code = 6690-2) 5.61 4.8-10.8 [facility] CenterRed Blood Dggvf2065-32-75 04:47:00* Test Item Value Reference Range Interpretation Comments Red Blood Count (test code = 789-8) 4.21 3.6-5.1 [facility] CenterHemoglobin2020-01-01 04:47:00* Test Item Value Reference Range Interpretation Comments Hemoglobin (test code = 11533-8) 12.5 12.0-16.0 [facility] CenterHematocrit2020-01-01 04:47:00* Test Item Value Reference Range Interpretation Comments Hematocrit (test code = 4544-3) 37.0 34.2-44.1 [facility] CenterMean Corpuscular Rtzzvp1985-16-15 04:47:00* Test Item Value Reference Range Interpretation Comments Mean Corpuscular Volume (test code = 787-2) 87.9 81-99 [facility] CenterMean Corpuscular Uyishbdvsn9064-53-05 04:47:00* Test Item Value Reference Range Interpretation Comments Mean Corpuscular Hemoglobin (test code = 785-6) 29.7 28-32 [facility] CenterMean Corpuscular Hemoglobin Concent 2019-02-11 04:47:00* Test Item Value Reference Range Interpretation Comments Mean Corpuscular Hemoglobin Concent (test code = 786-4) 33.8 31-35 [facility] CenterRed Cell Distribution Xtkud8954-69-46 04:47:00* Test Item Value Reference Range Interpretation Comments Red Cell Distribution Width (test code = 69588-2) 12.8 11.7 -14.4 [facility] CenterPlatelet Kmftu1096-37-79 04:47:00* Test Item Value Reference Range Interpretation Comments Platelet Count (test code = 777-3) 172 140-360 [facility] CenterNeutrophils (%) (Auto)2019-02-11 04:47:00 * Test Item Value Reference Range Interpretation Comments Neutrophils (%) (Auto) (test code = 15853-3) 60.4 38.7-80.0 [facility] CenterLymphocytes (%) (Auto)2019-02-11 04:47:00 * Test Item Value Reference Range Interpretation Comments Lymphocytes (%) (Auto) (test code = 736-9) 27.1 18.0-39.1 [facility] CenterMonocytes (%) (Auto)2019-02-11 04:47:00* Test Item Value Reference Range Interpretation Comments Monocytes (%) (Auto) (test code = 5905-5) 10.7 4.4-11.3 [facility] CenterEosinophils (%) (Auto)2019-02-11 04:47:00 * Test Item Value Reference Range Interpretation Comments Eosinophils (%) (Auto) (test code = 713-8) 1.4 0.0-6.0 [facility] CenterBasophils (%) (Auto)2019-02-11 04:47:00* Test Item Value Reference Range Interpretation Comments Basophils (%) (Auto) (test code = 706-2) 0.2 0.0-1.0 [facility] CenterIM GRANULOCYTES %2019-02-11 04:47:00* Test Item Value Reference Range Interpretation Comments IM GRANULOCYTES % (test code = IM GRANULOCYTES %) 0.2 0.0- 1.0 [facility] CenterNeutrophils # (Auto)2019-02-11 04:47:00* Test Item Value Reference Range Interpretation Comments Neutrophils # (Auto) (test code = 751-8) 3.4 2.1-6.9 [facility] CenterLymphocytes # (Auto)2019-02-11 04:47:00* Test Item Value Reference Range Interpretation Comments Lymphocytes # (Auto) (test code = 25251-3) 1.5 1.0-3.2 [facility] CenterMonocytes # (Auto)2019-02-11 04:47:00* Test Item Value Reference Range Interpretation Comments Monocytes # (Auto) (test code = 742-7) 0.6 0.2-0.8 [facility] CenterEosinophils # (Auto)2019-02-11 04:47:00* Test Item Value Reference Range Interpretation Comments Eosinophils # (Auto) (test code = 711-2) 0.1 0.0-0.4 [facility] CenterBasophils # (Auto)2019-02-11 04:47:00* Test Item Value Reference Range Interpretation Comments Basophils # (Auto) (test code = 704-7) 0.0 0.0-0.1 [facility] CenterAbsolute Immature Granulocyte (auto 2019-02-11 04:47:00* Test Item Value Reference Range Interpretation Comments Absolute Immature Granulocyte (auto (molly t code = Absolute Immature Granulocyte (auto) 0.01 0-0.1 [facility] CenterUrine Pnhv5591-09-59 04:47:00* Test Item Value Reference Range Interpretation Comments Urine Test (test code = 2106-3) NEGATIVE NEGATIVE [facility] CenterCHEST 2 GWPNT8330-77-69 04:47:00 [facility] [address] [address] Patient Name: FLEX PEREZ MR #: [id number] : 1975 Age/Sex: 43/F Req #: [id number] Adm Physician: Ordered by: SUZANNE INGRAM DO Report #: [id number] Location: ER Room/Bed: Procedure: [id number] DX /CHEST 2 VIEWS Exam Date: 02/11/19 [...] on 02/11/19447 COPY TO: SUZANNE INGRAM DO Fibrin D-dimer DDU measurement in platelet poor plasma (mass/volume)2019-02-11 03:30:00* Test Item Value Reference Range Interpretation Comments D-Dimer Quantitative (PE/DVT) (test code = 56759-6) < 100 0- 400 As with all in vitro diagnostic tests, the test results should be interpreted by the physician in conjunction with clinical findings and other test results.Test results are reported in NEW D-dimer units(ug/mLFEU).[facility] Centererum or plasma creatine kinase measurement (enzymatic activity/volume)2019-02-11 03:30:00* Test Item Value Reference Range Interpretation Comments Creatine Kinase (test code = 2157-6) 46 29-168 [facility] Centererum or plasma creatine kinase MB measurement (mass/volume)2019-02-11 03:30:00* Test Item Value Reference Range Interpretation Comments Creatine Kinase MB (test code = 45039-3) 0.90 0-5.0 [facility] CenterTroponin I measurement by highly sensitive enzyme zsrtvdrkgzh5574-23-95 03:30:00* Test Item Value Reference Range Interpretation Comments Troponin I (test code = 52183-5) 0.008 0-0.300 [facility] Centererum or plasma lipase measurement (enzymatic activity/volume)2019-02-11 03:30:00* Test Item Value Reference Range Interpretation Comments Lipase (test code = 3040-3) 20 8-78 [facility]- X[facility] CHEST 2 [id number] 20:13:00 Name: FLEX PEREZ [facility] : 1975 Age/S:43 /F [address] [facility] Unit#:[id number] Loc: [place] [address] Phys: Lane Padron MD Dis Date: PHONE #: [phone] Status: REG ER FAX #: [phone] Exam Date: 02/03/2019 Re ason: near syncope EXAMS: CPT CODE: [id number] XR CHEST 2 V 35766 HISTORY: Near syncope. COMPARISON: February 18, 2018. [...] (2049) PAGE 1 Signed Report BASIC METABOLIC [id number] 20:02:00* Test Item Value Reference Range Interpretation [...] CA) 8.8 mg/dL 8.4-10.2 N HCG SERUM [id number] 20:02:00* Test Item Value Reference Range Interpretation Comments HCG SERUM QUAL (test code = HCGQL) NEGATIVE NEGATIVE This HCGQL test is NOT applicable for MALE patients.Check with nurse about probable order error.If Tumor Marker Test needed, nurse should order test "HCGTU"(Test #550.45963) BASIC METABOLIC [id number] 19:59:00* Test Item Value Reference Range Interpretation [...] code = CA) mg/dL 8.4-10.2 HCG SERUM [id number] 19:59:00* Test Item Value Reference Range Interpretation Comments HCG SERUM QUAL (test code = HCGQL) NEGATIVE NEGATIVE This HCGQL test is NOT applicable for MALE patients.Check with nurse about probable order error.If Tumor Marker Test needed, nurse should order test "HCGTU"(Test #550.84279) CBC W/AUTO [id number] 19:50:00* Test Item Value Reference Range Interpretation [...] = MDIFF) NO - CT ABD PELVIS W/UPVR9267-80-14 19:23:00 Name: FLEX PEREZ [facility] : 1975 Age/S: 43 / F [address] [facility] Unit #: [id number] Loc: [place] [address] Phys: Victor M Francois MD Acct: [id number] Dis Date: Status: REG ER PHONE #: [phone] Exam Date: 12/10/2018 1850 FAX #: [phone] Reason: left side abd pain EXAMS: CPT CODE: [id number] CT ABD PELVIS W/CONT 46911 HISTORY: Left-sided pain. COMPARISON: CT abdomen and pelvis from November 28, 2011 and ultrasound abdomen from August 22, 2018. Location: . CT abdomen and pelvis with IV contrast: [...] 1 Signed Report (CONTINUED) Name: FLEX PEREZ [facility] : 1975 Age/S: 43 / F [address] [facility] Unit #: [id number] Loc: [place] [address] Phys: Victor M Francois MD Acct: [id number] Dis Date: Status: REG ER PHONE #: [phone] Exam Date: 2018 185 FAX #: [phone] Reason: left side abd pa in EXAMS: CPT CODE: [id number] CT ABD PELVIS W/CONT 741 77 <Continued> IMPRESSION: Appendix is normal. No bowel obstruction or colitis or diverticulitis or enteritis. No free fluid or free air or abscess. at 1923 Reported and signed by: Porfirio Lechuga M.D. CC: Victor M Francois MD Technologist:ANGEL LUIS AMARAL RT(R),RDMS,CT CTDI: DLP: Trnscb Date/Time: 12/10/2018 (1922) t.SDR.TH4 Orig Print D/T: S: 12/10/2018 (1925) PAGE 2 Signed Report URINALYSIS [id number] 19:07:00* Test Item Value Reference Range Interpretation [...] MODERATE per HPF NONE A URINALYSIS W/O [id number] 19:07:00* Test Item Value Reference Range Interpretation Comments UA MICROSCOPIC NEEDED? (test code = UAMICRO) YES URINALYSIS [id number] 19:04:00* Test Item Value Reference Range Interpretation [...] = BACU) per HPF NONE URINALYSIS W/O [id number] 19:04:00* Test Item Value Reference Range Interpretation Comments UA MICROSCOPIC NEEDED? (test code = UAMICRO) YES URINALYSIS [id number] 19:04:00* Test Item Value Reference Range Interpretation [...] = BACU) per HPF NONE URINALYSIS W/O [id number] 19:04:00* Test Item Value Reference Range Interpretation Comments UA MICROSCOPIC NEEDED? (test code = UAMICRO) YES COMPREHENSIVE METABOLIC [id number] 18:20:00* Test Item Value Reference Range Interpretation [...] code = ALKP) 137 U/L 38-126 H [id number] 18:20:00* Test Item Value Reference Range Interpretation Comments LIPASE (test code = LIP) 141 U/L 128-270 N [id number]-[id number] 18:20:00* Test Item Value Reference Range Interpretation Comments TROPONIN-I (test code = TROPI) <0.015 ng/mL 0.00-0.056 N COMPREHENSIVE METABOLIC [id number] 18:10:00* Test Item Value Reference Range Interpretation [...] TOTAL (test code = ALKP) IUnit/L 45-117 [id number] 18:10:00* Test Item Value Reference Range Interpretation Comments LIPASE (test code = LIP) Unit/L 144-286 [id number] 18:10:00* Test Item Value Reference Range Interpretation Comments TROPONIN-I (test code = TROPI) ng/mL 0-0.045 CBC W/AUTO WHAF8087-00-29 18:03:00* Test Item Value Reference Range Interpretation [...] code = MDIFF) NO - US ABDOMEN [id number] 23:24:00 Name: FLEX PEREZ [facility] : 1975 Age/S: 43 / F [address] [facility] Unit #: [id number] Loc: [place] [address] Phys: Luis Miguel Strauss MD Acct: [id number] Dis Date: Status: REG ER PHONE #: [phone] Exam Date: 08/22/2018 230 FAX #: [phone] Reason: RUQ pain EXAMS: CPT CODE: [id number] US ABDOMEN LTD 06158 EXAM: - US ABDOMEN LTD HISTORY: Pain [...] exam. IMPRESSION: 1. No significant abnormalities. at 2324 Reported and signed by: Spencer Merritt MD CC: Luis Miguel Strauss MD Technologist: Bonnie Vides RT(S), RDMS Trnscb Date/Time: 08/22/2018 (7154) EdelmiraMKM4 Orig Print D/T: S: 08/22/2018 (0547) Probe: PAGE 1 Signed Report BASIC METABOLIC [id number] 22:16:00* Test Item Value Reference Range Interpretation [...] CA) 9.4 mg/dL 8.5-10.1 N HEPATIC FUNCTION [id number] 22:16:00* Test Item Value Reference Range Interpretation [...] reference range due to change in reagent. [id number] 22:16:00* Test Item Value Reference Range Interpretation Comments LIPASE (test code = LIP) 129 U/L 73.0-393.0 N HCG SERUM [id number] 22:16:00* Test Item Value Reference Range Interpretation Comments HCG SERUM QUAL (test code = HCGQL) NEGATIVE NEGATIVE This HCGQL test is NOT applicable for MALE patients.Check with nurse about probable order error.If Tumor Marker Test needed, nurse should order test "HCGTU"(Test #550.48947) BASIC METABOLIC [id number] 22:11:00* Test Item Value Reference Range Interpretation [...] code = CA) mg/dL 8.5-10.1 HEPATIC FUNCTION [id number] 22:11:00* Test Item Value Reference Range Interpretation [...] TOTAL (test code = ALKP) IUnit/L 45-117 [id number] 22:11:00* Test Item Value Reference Range Interpretation Comments LIPASE (test code = LIP) U/L 73.0-393.0 HCG SERUM [id number] 22:11:00* Test Item Value Reference Range Interpretation Comments HCG SERUM QUAL (test code = HCGQL) NEGATIVE NEGATIVE This HCGQL test is NOT applicable for MALE patients.Check with nurse about probable order error.If Tumor Marker Test needed, nurse should order test "HCGTU"(Test #550.09468) BASIC METABOLIC [id number] 22:11:00* Test Item Value Reference Range Interpretation [...] code = CA) mg/dL 8.5-10.1 HEPATIC FUNCTION [id number] 22:11:00* Test Item Value Reference Range Interpretation [...] TOTAL (test code = ALKP) IUnit/L 45-117 [id number] 22:11:00* Test Item Value Reference Range Interpretation Comments LIPASE (test code = LIP) U/L 73.0-393.0 HCG SERUM [id number] 22:11:00* Test Item Value Reference Range Interpretation Comments HCG SERUM QUAL (test code = HCGQL) NEGATIVE NEGATIVE This HCGQL test is NOT applicable for MALE patients.Check with nurse about probable order error.If Tumor Marker Test needed, nurse should order test "HCGTU"(Test #550.81789) URINALYSIS [id number] 22:05:00* Test Item Value Reference Range Interpretation [...] #/LPF FEW Urine Source? Clean CatchCBC W/O [id number] 21:59:00* Test Item Value Reference Range Interpretation [...] = MPV) 10.4 fL 6.7-11.0 N URINALYSIS [id number] 21:58:00* Test Item Value Reference Range Interpretation [...] HPF NONE Urine Source? Clean CatchBASIC METABOLIC [id number] 22:24:00* Test Item Value Reference Range Interpretation [...] CA) 8.6 mg/dL 8.5-10.1 N HEPATIC FUNCTION [id number] 22:24:00* Test Item Value Reference Range Interpretation [...] reference range due to change in reagent. [id number] 22:24:00* Test Item Value Reference Range Interpretation Comments LIPASE (test code = LIP) 108 U/L 73.0-393.0 N HCG SERUM [id number] 22:24:00* Test Item Value Reference Range Interpretation Comments HCG SERUM QUAL (test code = HCGQL) NEGATIVE NEGATIVE This HCGQL test is NOT applicable for MALE patients.Check with nurse about probable order error.If Tumor Marker Test needed, nurse should order test "HCGTU"(Test #550.17445) [id number] 22:24:00* Test Item Value Reference Range Interpretation Comments TROPONIN-I (test code = TROPI) <0.015 ng/mL 0-0.045 N BASIC METABOLIC [id number] 22:16:00* Test Item Value Reference Range Interpretation [...] CA) 8.6 mg/dL 8.5-10.1 N HEPATIC FUNCTION [id number] 22:16:00* Test Item Value Reference Range Interpretation [...] reference range due to change in reagent. [id number] 22:16:00* Test Item Value Reference Range Interpretation Comments LIPASE (test code = LIP) 108 U/L 73.0-393.0 N HCG SERUM [id number] 22:16:00* Test Item Value Reference Range Interpretation Comments HCG SERUM QUAL (test code = HCGQL) NEGATIVE [id number] 22:16:00* Test Item Value Reference Range Interpretation Comments TROPONIN-I (test code = TROPI) <0.015 ng/mL 0-0.045 N BASIC METABOLIC [id number] 22:08:00* Test Item Value Reference Range Interpretation [...] code = CA) mg/dL 8.5-10.1 HEPATIC FUNCTION [id number] 22:08:00* Test Item Value Reference Range Interpretation [...] TOTAL (test code = ALKP) IUnit/L 45-117 [id number] 22:08:00* Test Item Value Reference Range Interpretation Comments LIPASE (test code = LIP) U/L 73.0-393.0 HCG SERUM [id number] 22:08:00* Test Item Value Reference Range Interpretation Comments HCG SERUM QUAL (test code = HCGQL) NEGATIVE [id number] 22:08:00* Test Item Value Reference Range Interpretation Comments TROPONIN-I (test code = TROPI) ng/mL 0-0.045 - DUP AB/PEL/SC [id number] 21:54:00 Name: FLEX PEREZ [facility] : 1975 Age/S: 43 / F [address] [facility] Unit #: [id number] Loc: [place] [address] Phys: Zafar Stephens 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 REPAIR INSPECTOR Acct: [id number] Dis Date: Status: REG ER PHONE #: [phone] Exam Date: 08/17/20182127 FAX #: [phone] Reason: PELVIC PAIN EXAMS: CPT CODE: [id number] DUP AB/PEL/SC COMP 02733 HISTORY: PELVIC PAIN TECHNIQUE: Static grayscale and [...] Zafar Stephens NP Technologist: Bonnie Vides RT(S), Trnlab Date/Time: 08/17/2018 (2153) [email or web address] Orig Print D/T: S: 08/17/2018 (2156) Probe: PAGE 1 Signed Report - US TRANSVAGINAL NON [id number] 21:54:00 Name: ZACKFLEX LIMA [facility] : 1975 Age/S: 43 / F [address] [facility] Unit #: [id number] Loc: [place] [address] Phys: Zafar Stephens NP Acct: [id number] Dis Date: Status: REG ER PHONE #: [phone] Exam Date: 08/17/20182127 FAX #: [phone] Reason: Pelvic Pain EXAMS: CPT CODE: [id number] [place] [address] HISTORY: PELVIC PAIN TECHNIQUE: Static grayscale and [...] RT(S), ROSA MARIA Trnscb Date/Time: 08/17/2018 (2153) Alex Orig Print D/T: S: 08/17/2018 (2156) Probe: [id number] PAGE 1 Signed Report - US PELVIS [id number] 21:54:00 Name: ZACKSHANIANATA LIMA [facility] : 1975 Age/S: 43 / F [address] [facility] Unit #: [id number] Loc: [place] [address] Phys: Zafar Stephens NP Acct: [id number] Dis Date: Status: REG ER PHONE #: [phone] Exam Date: 08/17/20182127 FAX #: [phone] Reason: PELVIC PAIN EXAMS: CPT CODE: [id number] US PELVIS COMPLETE 94280 HISTORY: PELVIC PAIN TECHNIQUE: Static grayscale and [...] RT(S), ROSA MARIA Trnscb Date/Time: 08/17/2018 (2153) Alex Orig Print D/T: S: 08/17/2018 (2156) Probe: PAGE 1 Signed Report URINALYSIS [id number] 21:50:00* Test Item Value Reference Range Interpretation Comments UA COLOR (test code = COLU) [place] YELLOW UA APPEARANCE (test code = APPU) [...] #/LPF NONE Urine Source? Clean CatchCBC W/O [id number] 21:27:00* Test Item Value Reference Range Interpretation [...] MPV) 10.4 fL 6.7-11.0 N CBC W/O [id number] 21:26:00* Test Item Value Reference Range Interpretation [...] code = MPV) fL 6.7-11.0 BASIC METABOLIC [id number] 12:52:00* Test Item Value Reference Range Interpretation [...] CA) 7.7 mg/dL 8.4-10.2 L HEPATIC FUNCTION [id number] 12:52:00* Test Item Value Reference Range Interpretation [...] code = ALKP) 110 U/L 38-126 N [id number] 12:52:00* Test Item Value Reference Range Interpretation Comments LIPASE (test code = LIP) 113 U/L 128-270 L HCG SERUM [id number] 12:52:00* Test Item Value Reference Range Interpretation Comments HCG SERUM QUAL (test code = HCGQL) NEGATIVE NEGATIVE This HCGQL test is NOT applicable for MALE patients.Check with nurse about probable order error.If Tumor Marker Test needed, nurse should order test "HCGTU"(Test #550.68023) URINALYSIS [id number] 12:34:00* Test Item Value Reference Range Interpretation [...] HPF NONE A Urine Source? Clean CatchURINALYSIS [id number] 12:07:00* Test Item Value Reference Range Interpretation [...] HPF NONE Urine Source? Clean CatchBASIC METABOLIC [id number] 11:50:00* Test Item Value Reference Range Interpretation [...] CA) 7.7 mg/dL 8.4-10.2 L HEPATIC FUNCTION [id number] 11:50:00* Test Item Value Reference Range Interpretation [...] code = ALKP) 110 U/L 38-126 N [id number] 11:50:00* Test Item Value Reference Range Interpretation Comments LIPASE (test code = LIP) 113 U/L 128-270 L HCG SERUM [id number] 11:50:00* Test Item Value Reference Range Interpretation Comments HCG SERUM QUAL (test code = HCGQL) NEGATIVE CBC W/O [id number] 11:41:00* Test Item Value Reference Range Interpretation [...] fL 6.7-11.0 N - XR CHEST 1 [id number] 19:07:00 Name: FLEX PEREZ [facility] : 1975 Age/S:42 /F [address] [facility] Unit#:[id number] Loc: [place], [place] [address] Phys: Paola Jimenez MD Dis Date: PHONE #: [phone] Status: DEP ER FAX #: [phone] Exam Date: 02/18/2018 Reason: CHEST PAIN EXAMS: CPT CODE: [id number] XR CHEST 1 V 30080 REASON FOR EXAM: CHEST PAIN EXAM ORDER DATE: 02/18/2018 6:18 PM Ordering Radhika: Paola Jimenez MD PROCEDURE: - XR CHEST [...] BARRON GUZMÁN, RT(R),CT Trnscrpt Data: 02/18/2018 (1906) EdelmiraVTL Orig Print D/T: S: 02/18/2018 (191) PAGE 1 Signed Report - XR CHEST 1 [id number] 00:19:00 Name: FLEX PEREZ [facility] : 1975 Age/S:42 /F [address] [facility] Unit#:[id number] Loc: [place] [address] Phys: Mohit Dubois MD Dis Date: PHONE #: [phone] Status: [facility] FAX #: [phone] Exam Date: 11/02/2017 Reason: CHEST PAIN EXAMS: CPT CODE: [id number] XR CHEST 1 V 75246 HISTORY: Chest pain. Location: C3 COMPARISON:None FINDINGS: Heart size is upper normal. Vascularity is upper normal as well. The lungs are clear of focal consolidation. No effusion, pneumothorax, or acute osseous abnormality. IMPRESSION: 1. No focal consolidation. No other acute abnormalities. at 0019 Reported and signed by: Elmer Mcadams MD CC: Mohit Dubois MD Technologist: Fanta Llanes Trnscrpt Data: 11/02/2017 (0019) [id number] Orig Print D/T: S: 11/02/2017 (002) PAGE 1 Signed Report - CT ANGIO CHEST 2017-07-20 17:44:00 Name: FLEX PEREZ [facility] [place] : 1975 Age/S: 42 / F [address] [facility] Unit #: [id number] Loc: [place] [address] Phys: Dwayne Ford DO Acct: [id number] Dis Date: Status: DEP ER PHONE #: [phone] Exam Date: 07/20/2017 1703 FAX #: [phone] Reason: left arm numbness/ left arm cyanosis EXAMS: CPT CODE: [id number] CT ANGIO CHEST 44728 CHEST CTA WITH CONTRAST WITH 3D RECONSTRUCTIONS. [...] subclavian artery which are included in the zeuci-ln-ztus are widely patent without focal stenosis or occlusion. LUNGS/PLEURA: Lungs are clear. No pleural effusions. UPPER ABDOMEN: Limited survey of upper abdominal viscera is negative. CHEST WALL: No suspicious osseous abnormality. IMPRESSION: 1. No CT evidence for acute pu lmonary embolus or thoracic aortic dissection. 2. No acute pulm onary findings. SL: RICHIE-H PAGE 1 Signed Report (CONTINUED) Name: FLEX PEERZ [facility] [place] : 1975 Age/S: 42 / F [address] [facility] Unit #: [id number] Loc: [facility] [place] [address] Phys: Dwayne Ford DO Acct: [id number] Dis Date: Status: DEP ER PHONE #: [phone] Exam Date: 07/20/20171702 FAX #: [phone] Reason: left arm numbness/ left arm cyanosis EXAMS: CPT CODE: [id number] CT ANGIO CHEST 17346 <Continued> at 1744 Reported and signed by: Yrn Carnes M.D. CC: Dwayne Ford DO Technologist:Bob Vázquez, (R) CTDI: DLP: Trnscb Date/Time: 07/20/2017 (1743) [email or web address] Orig Print D/T: S: 07/20/2017 (1746) PAGE 2 Signed Report - CT HEAD/BRAIN W/O [id number] 17:15:00 Name: FLEX PEREZ [facility] : 1975 Age/S: 42 / F [address] [place] [address] Unit #: [id number] Loc: [place] [address] Phys: Brisa Ford DO Acct: [id number] Di s Date: Status: [facility] ER PHONE #: Exam Date: 07/20/20171702 FAX #: [phone] Reason: left arm numbness/ left arm cyanosis EXAMS: CPT CODE: [id number] CT HEAD/BRAIN W/O CONT 53790 CT HEAD NO CONTRAST HISTORY: Left arm [...] No acute intracranial abnormality demonstrated. SL:01 at 1715 Reported and signed by: Andrew Mary M.D. CC: Dwayne Ford DO Technologist:RT Edmund(R) CTDI: DLP: Trnscb Date/Time: 07/20/2017 (1894) Adam Orig Print D/T: S: 07/20/2017 (9133) PAGE 1 Signed Report
--- OUTSIDE RECORDS SUMMARY | 2019-07-12 21:31 | XMS REPORT | Clinical Summary ---
Author Author [facility] Address Unknown Phone Unavailable Care Team Providers Care Vp Lab Name Role Phone Asked, No Pcp PCP Unavailable Allergies Comments Active Allergy Reactions Severity Noted Date Latex Swelling 02/28/2019 Medications No known medications Active Problems Not on file Encounters Care Team Description Date Type Specialty Reinaldo Morataya MD Nonintractable headache, unspecified chr onicity pattern, unspecified headache type (Primary Dx); Generalized abdominal pain 02/28/2019 Emergency Emergency Medicine after 07/11/2018 Social History Date Tobacco Use Types Packs/Day [...] Comments Vital Sign 94/53 02/28/2019 7:50 AM CROP SETTING OUT MACHINE OPERATOR Blood Pressure 70 02/28/2019 7:50 AM CROP SETTING OUT MACHINE OPERATOR Pulse 36.9 C (98.5 F) 02/28/2019 5:10 AM CROP SETTING OUT MACHINE OPERATOR Temperature 17 02/28/2019 7:50 AM CROP SETTING OUT MACHINE OPERATOR Respiratory Rate 99% 02/28/2019 7:50 AM CROP SETTING OUT MACHINE OPERATOR Oxygen Saturation - - Inhaled Oxygen Concentration 113 kg (250 lb) 02/28/2019 5:10 AM CROP SETTING OUT MACHINE OPERATOR Weight 162.6 cm (5' 4") 02/28/2019 5:10 AM CROP SETTING OUT MACHINE OPERATOR Height 42.91 02/28/2019 5:10 AM CROP SETTING OUT MACHINE OPERATOR Body Mass Index Plan of Treatment Health Maintenance Due Date Last Done Comments CERVICAL CANCER SCREENING 1998 INFLUENZA VACCINE 09/12/2019 Procedures Comments Procedure Name Priority Date/Time Associated Diag nosis XR CHEST 2 VW STAT 02/28/2019 7:22 AM CROP SETTING OUT MACHINE OPERATOR CT HEAD WO CONTRAST STAT 02/28/2019 6:57 AM CROP SETTING OUT MACHINE OPERATOR TROPONIN Routine 02/28/2019 6:47 AM CROP SETTING OUT MACHINE OPERATOR ESTIMATED GFR STAT 02/28/2019 5:40 AM CROP SETTING OUT MACHINE OPERATOR HCG QUALITATIVE, URINE STAT 02/28/2019 SCREEN 5:40 AM CROP SETTING OUT MACHINE OPERATOR URINALYSIS SCREEN AND STAT 02/28/2019 MICROSCOPY, WITH REFLEX 5:40 AM CROP SETTING OUT MACHINE OPERATOR TO CULTURE COMPREHENSIVE METABOLIC STAT 02/28/2019 PANEL 5:40 AM CROP SETTING OUT MACHINE OPERATOR HC COMPLETE BLD COUNT STAT 02/28/2019 W/AUTO DIFF 5:40 AM CROP SETTING OUT MACHINE OPERATOR URINE CULTURE STAT 02/28/2019 5:40 AM CROP SETTING OUT MACHINE OPERATOR after 07/11/2018 Results * XR Chest 2 Vw (02/28/2019 7:22 AM CROP SETTING OUT MACHINE OPERATOR) Specimen Narrative Performed At EXAMINATION: XR CHEST 2 VW [facility] CLINICAL HISTORY: 43 years Female chest pain [facility] COMPARISON: None IMPRESSION: 1.Heart size and central vasculature ar e normal. 2.The lungs are clear. 3.Bones are intact. [id number] Procedure Note Hm Interface, Radiology Results Incoming - 02/28/2019 7:26 AM CROP SETTING OUT MACHINE OPERATOR EXAMINATION: XR CHEST 2 VW CLINICAL HISTORY: 43 years Female chest pain [facility] COMPARISON: None IMPRESSION: 1.Heart size and central vasculature are normal. 2.The lungs are clear. 3.Bones are intact. [id number] Performing Organization Address City/State/Zipcode Ph one Number [facility] [address] [place] [address] * CT Head Wo Contrast (02/28/2019 6:57 AM CROP SETTING OUT MACHINE OPERATOR) Specimen Narrative Performed At EXAMINATION: CT [...] No CT evidence of acute intracranial abnormality. [facility][id number] Procedure Note [facility], Radiology Results Incoming - 02/28/2019 7:02 AM CROP SETTING OUT MACHINE OPERATOR EXAMINATION: CT HEAD WO CONTRAST CLINICAL [...] No CT evidence of acute intracranial abnormality. [facility]-[id number] Performing Organization Address City/State/Zipcode Ph one Number [facility] [address] [place] [address] * Troponin (02/28/2019 6:47 AM CROP SETTING OUT MACHINE OPERATOR) Troponin <0.006 0.000 - 0.040 ng/mL [place] Comment: [place] CLEAR In patients suspected of [facility] having a myocardial infarction, along with [...] Performing Organization Address City/State/Zipcode Ph one Number [facility] [place] [address] [address] [place], [place] [address] PATHOLOGY AND GENOMIC MEDICINE [facility] [address] [place] [address] [facility] * Urinalysis screen and microscopy, with reflex to culture (02/28/2019 5:40 AM CROP SETTING OUT MACHINE OPERATOR) Specimen site Catheterized [facility] Color, UA Yellow [facility] Appearance, UA Slightly-Cloudy [facility] Specific 1.021 1.001 - 1.035 [place] gravity, [facility] pH, UA 6.0 5.0 - 8.5 [facility] Protein, UA Negative Negative [facility] Glucose, UA Negative Negative [facility] Ketones, UA Trace (A) Negative [facility] Bilirubin, UA Negative Negative [facility] Blood, UA Negative Negative [facility] Nitrite, UA Negative Negative [facility] Urobilinogen, Negative <2.0 [facility] Leukocyte Negative Negative [place] esterase, [facility] Epithelial None seen Few /HPF [place] cells, UA [facility] WBC, UA None seen 0 - 4 /HPF [facility] RBC, UA None seen 0 - 5 /HPF [facility] Bacteria, UA None seen None seen [facility] Yeast, UA None seen [facility] Yeast with None seen [place] pseudohyphae, [facility] Specimen Urine Performing Organization Address City/[facility] Ph one Number [facility] DEPARTMENT [address] [place] [address] PATHOLOGY AND GENOMIC MEDICINE [address] * Estimated GFR (02/28/2019 5:40 AM CROP SETTING OUT MACHINE OPERATOR) Pathologist [facility] Estimated GFR >=90 mL/min/1.73 m2 [place] Comment: [place] [facility] Interpretation G1 >=90 Normal or high G2 [...] 2014. Specimen Plasma specimen Performing Organization Address [facility] Ph one Number [facility] DEPARTMENT OF [address] [place] [address] [place] [address] PATHOLOGY AND GENOMIC MEDICINE [address] * hCG qualitative, urine screen (02/28/2019 5:40 AM CROP SETTING OUT MACHINE OPERATOR) Pathologist [facility] hCG Negative Negative [place] qualitative, Comment: MEEK VIRK urine The manufacturers stated [facility] L sensitivity of HcG test for serum is >/= 10 mIU/ml and urine is >/= 20mIU/ml. Specimen Urine Performing Organization Address [facility] Ph one Number [facility] DEPARTMENT [address] [place] [address] 58 PATHOLOGY AND GENOMIC MEDICINE [address] * CBC with platelet and differential (02/28/2019 5:40 AM CROP SETTING OUT MACHINE OPERATOR) Pathologist [facility] WBC 4.41 (L) 4.50 - 11.00 k/uL [facility] RBC 4.25 4.20 - 5.50 m/uL [facility] HGB 12.8 12.0 - 16.0 g/dL [facility] HCT 38.0 37.0 - 47.0 % [facility] MCV 89.4 82.0 - 100.0 fL [facility] MCH 30.1 27.0 - 34.0 pg [facility] MCHC 33.7 31.0 - 37.0 g/dL [facility] RDW - SD 41.7 37.0 - 55.0 fL [facility] MPV 10.9 8.8 - 13.2 fL [facility] Platelet count 155 150 - 400 k/uL [facility] Nucleated RBC 0.00 /100 WBC [facility] Neutrophils 55.3 39.0 - 69.0 % [facility] Lymphocytes 33.8 25.0 - 45.0 % [facility] Monocytes 10.0 0.0 - 10.0 % [facility] Eosinophils 0.7 0.0 - 5.0 % [facility] Basophils 0.2 0.0 - 1.0 % [facility] Specimen Blood Performing Organization Address City/[facility] Ph one Number [facility] DEPARTMENT OF [address] [place] [address] [place] [address] PATHOLOGY AND GENOMIC MEDICINE [address] * Urine culture (02/28/2019 5:40 AM CROP SETTING OUT MACHINE OPERATOR) Pathologist [facility] Urine culture SEE COMMENTComment: [place] Bacteriuria screen negative. [facility] Specimen Urine Performing Organization Address City/[facility] Ph one Number [facility] DEPARTMENT [address] [place] [address] 58 PATHOLOGY AND GENOMIC MEDICINE [address] * Comprehensive metabolic panel (02/28/2019 5:40 AM CROP SETTING OUT MACHINE OPERATOR) Sodium 137 135 - 148 mEq/L [facility] Potassium 4.2 3.5 - 5.0 mEq/L [facility] Chloride 102 98 - 112 mEq/L [facility] CO2 24 24 - 31 mEq/L [facility] Anion gap 11@ANIO 7 - 15 mEq/L [facility] BUN 15 6 - 20 mg/dL [facility] Creatinine 0.70 0.50 - 0.90 mg/dL [facility] Glucose 109 (H) 65 - 99 mg/dL [facility] Calcium 9.8 8.3 - 10.2 mg/dL [facility] Protein 8.4 (H) 6.3 - 8.3 g/dL [place] Comment: [facility] Ujwncoj5106.6-7.0 g/dL [facility] 1 acnb4731.4-7.6 g/dL 7 months-9nhmo020.1-7.3 g/dL 1-2 yxomy070.6-7.5 g/dL >3 syyyn489.0-8.0 g/dL 18-9771807.3-8.3 g/dL Albumin 4.4 3.5 - 5.0 g/dL [facility] A/G ratio 1.1 0.7 - 3.8 [facility] Alkaline 99 35 - 104 U/L [place] phosphatase [facility] AST 67 (H) 10 - 35 U/L [facility] ALT 71 (H) 5 - 50 U/L [facility] Total bilirubin 0.7 0.0 - 1.2 mg/dL [facility] Specimen Plasma specimen Performing Organization Address City/State/Zipconm [place] [address] [address] [place], [place] [address] PATHOLOGY AND GENOMIC MEDICINE [facility] [address] [place] [address] [facility] after 07/11/2018 Advance Directives For more information, please contact: [phone] Patient Service Trainer Explanation Type Date Recorded Advance Directives, 02/28/2019 5:36 AM Living Will and Medical Power of Skate Hop
--- NOTE | 2019-07-12 22:19 | Emergency Department Note ---
History of Present Illnes History of Present Illness Chief Complaint: General Medicine Complaints History of Present Illness This is a 44 year old female with pruiritus left foot. States that she has been outdoors today. . 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 Any updates have been documented here. Past Medical History Recent Fever: No Clinical Suspicion of Infectio: No New/Unexplained Change in Ment: No Past Medical History: None Past Surgical History: Hysterectomy, T&A, Other Surgery: LYSIS OF ADHESIONS chest tube Social History Smoking Cessation: Never Smoker Alcohol Use: None Any Illegal Drug Use: No Other Last Tetanus: OOD Review of Systems Review of Systems Constitutional: no symptoms EENTM: no symptoms Cardiovascular: no symptoms Respiratory: no symptoms Gastrointestinal: no symptoms Genitourinary: no symptoms Musculoskeletal: no symptoms Neurological: no symptoms Psychological: no symptoms Endocrine: no symptoms Hematological/Lymphatic: no symptoms Review of other systems All other systems reviewed and negative. Physical Exam Related Data Allergies: Coded Allergies: latex (Verified Allergy, Unknown, 07/09/19) Triage Vital Signs Vital Signs Date Time Temp Pulse Resp B/P (MAP) Pulse Ox O2 Delivery O2 Flow Rate FiO2 07/12/19 22:15 Vital signs reviewed: Yes Physical Exam CONSTITUTIONAL Constitutional: well-developed, well-nourished HENT HENT: normocephalic, atraumatic, oropharynx clear/moist, nose normal HENT L/R: left ext ear normal, right ext ear normal EYES Eyes: PERRL, conjunctivae normal NECK Neck: ROM normal PULMONARY Pulmonary: effort normal, breath sounds normal CARDIOVASCULAR Cardiovascular: regular rhythm, heart sounds normal, capillary refill normal, normal rate GASTROINTESTINAL Abdominal: soft, nontender, bowel sounds normal GENITOURINARY Genitourinary: exam deferred SKIN Skin: warm, dry, other (papular lesions dorsum left foot, no erythema noted.) MUSCULOSKELETAL Musculoskeletal: ROM normal NEUROLOGICAL Neurological: alert, oriented x 3, no gross motor or sensory deficits PSYCHOLOGICAL Psychological: mood/affect normal, judgement normal Assessment & Plan Assessment & Plan Final Impression: (1) OTHER SUPERFICIAL BITE OF LEFT FOOT, INITIAL ENCOUNTER Assessment & Plan patient evaluated and given Rx Benadryl and Prednisone Depart Disposition: HOME, SELF-CARE SUZANNE INGRAM DO July 12, 2019 22:19
== END 2019-07-12 22:31 | disposition home or self-care (01) ==
LOC: ER 21:28
DX: L29.8 Other pruritus (principal); S90.872A Other superficial bite of left foot, initial encounter
CPT/HCPCS: 99283

== ENCOUNTER 2020-02-11 10:30 | Emergency (ER) | payer SELFPAY ==
[~2020-02-11] VITALS: Ht 162.6 cm; Wt 112.5 kg
== END 2020-02-11 13:16 | disposition home or self-care (01) ==
LOC: ER 11:06
DX: R51.9 Headache, unspecified (principal); R04.0 Epistaxis
CPT/HCPCS: 70450; 99283

== ENCOUNTER 2024-10-09 17:17 | Emergency (ER) | payer SELFPAY ==
[~2024-10-09] VITALS: Ht 162.6 cm; Wt 113.4 kg
[2024-10-09 20:00] VITALS: TEMP 98.2
[2024-10-09 20:30] LABS: BASOPHILS % 0.2 % (0.0-1.0); EOSINOPHILS % 1.5 % (0.0-6.0); LYMPHOCYTES % 33.0 % (18.0-39.1); MONOCYTES % 7.7 % (4.4-11.3); NEUTROPHILS % 57.4 % (38.7-80.0); RED CELL DISTRIBUTION WIDTH 13.3 % (11.7-14.4)
[2024-10-09 20:40] LABS: EST GLOMERULAR FILTRATION RATE 115.0 ML/MIN (>=60)
[2024-10-09 21:12] LABS: CORONAVIRUS COVID-19 AG NEGATIVE (NEGATIVE)
[2024-10-09 21:14] LABS: STREPTOCOCCUS GRP A ANTIGEN NEGATIVE (NEGATIVE)
[2024-10-09] MEDS ORDERED: IOPAMIDOL 370 MG/ML 100 ML INFUS..BTL INJ ONE (21:28)
[2024-10-09 22:18] VITALS: PULSE 80; RESP 21
[2024-10-09 23:57] VITALS: BP 112/67; PULSE 71; RESP 18; TEMP 97.6; O2SAT 97
== END 2024-10-10 00:03 | disposition home or self-care (01) ==
LOC: ER 19:22
DX: R07.9 Chest pain, unspecified (principal)
CPT/HCPCS: 36415; 71045; 71260; 80053; 83518; 84484; 84702; 85025; 85379; 87070; 87426; 93005; 99284; Q9967